=== PATIENT | male | born 1935 | race Caucasian/White ===

== ENCOUNTER 2016-12-17 15:12 | Emergency (ER) | payer MEDICARE ==
[2016-12-17 15:26] VITALS: TEMP 97.8
--- NOTE | 2016-12-17 16:46 | ED ---
Wound/Laceration HPI - General Chief Complaint: Wound/Laceration Stated Complaint: ear laceration/fall(2to3 steps) Time Seen by Provider: 12/17/16 15:28 Source: patient Mode of arrival: ambulatory Limitations: no limitations - History of Present Illness Initial Comments: 81-year-old male patient presents to emergency department for evaluation of ear laceration after a fall. Patient states that this occurred about one hour prior to arrival. Patient states he was coming down attic steps when he missed a step and fell down about 4 stairs. Patient states he did land on the landing hitting his ear and one of the steps. Patient denies losing consciousness. Denies any headache, neck pain, back pain, chest pain, shortness of breath, abdominal pain, nausea, vomiting, blurred vision, or double vision. Denies any joint pain or other injuries. Patient denies use of anticoagulants. States he had a tetanus shot 3 years ago. - Related Data Previous Rx's Medication Instructions Recorded Cephalexin [Keflex] 500 mg PO Q8HR #15 cap 12/17/16 Allergies Allergy/AdvReac Type Severity Reaction Status Date / Time latex AdvReac Itching Verified 12/17/16 15:26 Review of Systems ROS Statement: Those systems with pertinent positive or pertinent negative responses have been documented in the HPI. ROS Other: All systems not noted in ROS Statement are negative. Past Medical History Past Medical History: Hypertension History of Any Multi-Drug Resistant Organisms: None Reported Past Surgical History: Orthopedic Surgery Past Psychological History: No Psychological Hx Reported Smoking Status: Never smoker Past Alcohol Use History: Daily, Occasional Past Drug Use History: None Reported General Exam Limitations: no limitations General appearance: alert, in no apparent distress Head exam: Present: atraumatic, normocephalic, normal inspection ENT exam: Present: normal oropharynx, mucous membranes moist, TM's normal bilaterally, other (Left ear laceration involving the helix and triangular fossa. Exposed cartilage, with a lacerated cartilage near the attachment of the helix to the scalp.). Absent: normal exam, normal external ear exam Neck exam: Present: normal inspection, full ROM (No midline point tenderness, step-off, or deformity to firm palpation of the posterior cervical spine. Full range of motion of the neck without limitation or pain.). Absent: tenderness, meningismus, lymphadenopathy Respiratory exam: Present: normal lung sounds bilaterally. Absent: respiratory distress, wheezes, rales, rhonchi, stridor Cardiovascular Exam: Present: regular rate, normal rhythm, normal heart sounds. Absent: systolic murmur, diastolic murmur, rubs, gallop, clicks GI/Abdominal exam: Present: soft, normal bowel sounds. Absent: distended, tenderness, guarding, rebound, rigid Extremities exam: Present: normal inspection, full ROM, normal capillary refill , other (Posttibial pulses intact. Skin pink, warm, and dry.). Absent: tenderness, pedal edema, joint swelling, calf tenderness Back exam: Present: normal inspection, full ROM, other (Contusions, ecchymosis, or abrasions are noted. Nontender without step-off or deformity to her midline palpation. No flank ecchymosis noted. Pelvis is nontender to palpation and stable to compression.). Absent: tenderness, CVA tenderness (R), CVA tenderness (L), vertebral tenderness Neurological exam: Present: alert, oriented X3, CN II-XII intact Psychiatric exam: Present: normal affect, normal mood Skin exam: Present: warm, dry, intact, normal color. Absent: rash Course Vital Signs 12/17/16 15:21 Temperature 97.8 F Pulse Rate 87 Respiratory 16 Rate Blood Pressure 162/75 O2 Sat by Pulse 96 Oximetry Procedures - Laceration Laceration #1 Consent Obtained: verbal consent Time Out Performed: Yes Indication: laceration Site: other (Left ear) Size (cm): 5 Description: linear Depth: simple, single layer (Involves cartilage) Anesthetic Used: lidocaine 1% Anesthesia Technique: local infiltration Amount (mls): 1 Pre-repair: irrigated extensively Type of Sutures: nylon Size of Sutures: 5-0 Number of Sutures: 9 Technique: simple, interrupted Patient Tolerated Procedure: well, no complications Additional Comments: One suture placed to the triangular fossa area. Medical Decision Making - Medical Decision Making 81-year-old male patient presents to emergency department today for evaluation of left ear laceration. Patient did experience a fall however was not complaining of any other injuries and physical exam was unremarkable except for lac to left ear. My attending Dr. Carroll did come in to evaluate the ear as well and advised repair. Laceration was repaired. 9 sutures were placed. Patient given instructions to return in 5 days for suture removal. Instructed patient to follow up with ENT in 1-2 days for a recheck. Instructed patient to return for any new, worsening, or concerning symptoms. Patient instructed to follow up with primary care physician in one to 2 days as well for recheck if unable to get in to ENT. Patient and family given instructions to cleanse area twice daily with warm water and soap. Return parameters discussed in detail. Instructed regarding signs and symptoms of infection. Disposition Clinical Impression: Laceration of left ear Disposition: HOME SELF-CARE Condition: Good Instructions: Care For Your Stitches (ED), Laceration (ED) Additional Instructions: Keep area clean and dry. Apply antibiotic ointment for the first 24 hours. Then leave open to air. Wash gently twice daily with warm water and antibacterial soap. Complete antibiotic prescription and full. Return for any new, worsening, or concerning symptoms. Follow up with ENT in 1-2 days for recheck. Prescriptions: Cephalexin [Keflex] 500 mg PO Q8HR #15 cap Referrals: Gisel Gonzalez MD [Primary Care Provider] - 1-2 days Vic Perdue DO [Doctor of Osteopathic Medicine] - 1-2 days Time of Disposition: 16:46
[2016-12-17 16:54] VITALS: BP 145/78; PULSE 80; RESP 18
== END 2016-12-17 16:52 | disposition home or self-care (01) ==
LOC: EC 15:12
DX: S01.312A Laceration without foreign body of left ear, initial encounter (principal); S20.229A Contusion of unspecified back wall of thorax, initial encounter; Z91.040 Latex allergy status; W10.8XXA Fall (on) (from) other stairs and steps, initial encounter
CPT/HCPCS: 12013; 99282

== ENCOUNTER 2017-11-30 08:02 | Day surgery (SDC) | payer MEDICARE ==
[2017-11-24 15:12] VITALS: BMI 24.7
[~2017-11-30 08:02] MED LIST: LACTATED RINGERS 1,000 ML IV SCH; MOXIFLOXACIN HCL 0.5% DROPS 3 ML BTL OP ONE; TETRACAINE 0.5% OPHTH (PF) DROPS 4 ML BTL OP ONE; TIMOLOL 0.5% OPHTH DROPS 5 ML BTL OP ONE
[2017-11-30] MEDS ORDERED: LIDOCAINE 1% 20 ML VIAL (10MG/ML) FOR IV START INTRADERMA ONE ×2 (09:10→09:21)
[2017-11-30] MEDS: CYCLOPENTOLATE 1% OPHTH SOLN 2 ML BTL OP ONE ×4 (09:10→09:28)
[2017-11-30] MEDS: PHENYLEPHRINE 2.5% OPHTH DRP 2ML OP NR ×3 (09:13→09:30)
[2017-11-30 09:16] VITALS: RESP 16; TEMP 97.2
[2017-11-30] MEDS ORDERED: fentaNYL (PF) 50 MCG/ML 2 ML AMP ONE (10:17)
[2017-11-30] MEDS ORDERED: MIDAZOLAM 2 MG/2 ML VIAL ONE (10:17)
[2017-11-30] MEDS ORDERED: EPINEPHrine (PF) 0.3 ML in BALANCED SALT IRRIG SOLN COMB2 500 ML IRRIGATION ONE (10:20)
[2017-11-30] MEDS ORDERED: HYALURONATE SODIUM INTRAOCULAR 1 EACH SYRINGE (12MG/ML) INTRAOCULA ONE (10:21)
[2017-11-30] MEDS ORDERED: LIDOCAINE 1% (PF) 10MG/ML VIAL MISCELLANE ONE (10:21)
[2017-11-30] MEDS ORDERED: BALANCED SALT IRRIG SOLN COMB2 15 ML IRRIG.SOLN INTRAOCULA ONE (10:21)
--- NOTE | 2017-11-30 10:44 | P.OP ---
Date of Procedure: 11/30/17 Preoperative Diagnosis: NS & CS Postoperative Diagnosis: same Procedure(s) Performed: PIOL OS Implants: PCB00 18.50 Anesthesia: MAC Surgeon: Douglas Geiger Estimated Blood Loss (ml): 0 Pathology: none sent Condition: stable Disposition: same day Indications for Procedure: blurry vision Operative Findings: No complications
[2017-11-30 11:11] VITALS: BP 128/63; PULSE 52
--- NOTE | 2017-11-30 11:15 | OP ---
OPERATIVE REPORT DATE OF SERVICE: 11/30/2017 PROCEDURE: Phacoemulsification of cataract and intraocular implant left eye. PREOPERATIVE DIAGNOSIS:: Nuclear sclerosis, cortical sclerosis. POSTOPERATIVE DIAGNOSIS:: Nuclear sclerosis, cortical sclerosis. ESTIMATED BLOOD LOSS:: Zero. SPECIMEN TAKEN:: None. NARRATIVE:: After obtaining the appropriate consent, the patient was brought to the Operating Room where the patient was placed under cardiac monitoring and prepped and draped in the usual sterile manner. At the 5 o'clock position a 15 degree super sharp blade was used to create a paracentesis followed by instillation of 1% Xylocaine MPF 50:50 mix with BSS into the anterior chamber. This was followed by to stabilize the anterior chamber. At the 3 o'clock position a self-sealing corneal flap incision was created using 2.8 mm deedee keratome. A cystatome was used to initiate a continuous tear capsulorrhexis which was completed with the Utrata forceps. A Binkhorst cannula was used to hydrodissect the lens nucleus followed by hydrodelineation. Phacoemulsification of the lens was performed utilizing phacochop in 24.1 seconds at 10% power. The remaining cortical material was removed using the irrigation aspiration mode followed by additional 1% Xylocaine MPF into the anterior chamber followed by Amvisc viscoelastic to stabilize the capsular bag. An NIKITA PCB00 18.5 diopters posterior chamber lens was placed into the capsular bag without difficulty. The remaining viscoelastic material was removed from the anterior chamber with the irrigation/aspiration. Balanced salt solution was used to normalize the intraocular pressure. The incision was checked for watertight integrity. The patient then received two drops of 0.5% timolol followed by two drops Vigamox, was lightly patched and shielded in the usual manner. There were no complications from the procedure. The patient tolerated the procedure well and was returned to recovery in good condition. MMODL / IJN: [id number] /
== END 2017-11-30 11:45 | disposition home or self-care (01) ==
LOC: OR 08:02
PROVIDERS: ATTEND Ophthalmology
DX: H25.013 Cortical age-related cataract, bilateral (principal); H02.102 Unspecified ectropion of right lower eyelid; H02.105 Unspecified ectropion of left lower eyelid; H25.041 Posterior subcapsular polar age-related cataract, right eye; H52.4 Presbyopia; H52.13 Myopia, bilateral; H00.026 Hordeolum internum left eye, unspecified eyelid; H00.023 Hordeolum internum right eye, unspecified eyelid; I10 Essential (primary) hypertension; Z91.040 Latex allergy status; Z79.82 Long term (current) use of aspirin; Z79.899 Other long term (current) drug therapy
CPT/HCPCS: 66984; C1780; J2250; J0171; J3010; J2001

== ENCOUNTER 2017-12-14 06:34 | Day surgery (SDC) | payer MEDICARE ==
[2017-12-06 16:05] VITALS: BMI 24.7
[~2017-12-14 06:34] MED LIST changes: +LIDOCAINE 1% 20 ML VIAL (10MG/ML) FOR IV START INTRADERMA PRN; +MIDAZOLAM 2 MG/2 ML VIAL IV PRN
[2017-12-14] MEDS: CYCLOPENTOLATE 1% OPHTH SOLN 2 ML BTL OP ONE ×3 (07:19→07:34)
[2017-12-14 07:21] VITALS: RESP 16; TEMP 97.3
[2017-12-14] MEDS: PHENYLEPHRINE 2.5% OPHTH DRP 2ML OP NR ×3 (07:23→07:38)
[2017-12-14] MEDS ORDERED: fentaNYL (PF) 50 MCG/ML 2 ML AMP ONE (08:03)
[2017-12-14] MEDS ORDERED: MIDAZOLAM 2 MG/2 ML VIAL ONE (08:03)
[2017-12-14] MEDS ORDERED: BALANCED SALT IRRIG SOLN COMB2 15 ML IRRIG.SOLN IRRIGATION ONE (08:04)
[2017-12-14] MEDS ORDERED: LIDOCAINE 1% (PF) 10MG/ML VIAL SQ ONE (08:04)
[2017-12-14] MEDS ORDERED: HYALURONATE SODIUM INTRAOCULAR 1 EACH SYRINGE (12MG/ML) INTRAOCULA ONE (08:04)
[2017-12-14] MEDS ORDERED: EPINEPHrine (PF) 0.3 ML in BALANCED SALT IRRIG SOLN COMB2 500 ML IRRIGATION ONE (08:17)
--- NOTE | 2017-12-14 08:33 | P.OP ---
Date of Procedure: 12/14/17 Preoperative Diagnosis: NS & CS & PSC Postoperative Diagnosis: same Procedure(s) Performed: PIOL OD Implants: PCB00 17.00 Anesthesia: MAC Surgeon: Douglas Geiger Pathology: none sent Condition: stable Disposition: same day Indications for Procedure: blurry vision Operative Findings: no complications
[2017-12-14 08:56] VITALS: BP 155/78; PULSE 50
--- NOTE | 2017-12-14 08:58 | OP ---
OPERATIVE REPORT DATE OF SURGERY: 12/14/2017. PROCEDURE: Phacoemulsification of cataract and intraocular lens implant of the right eye. PREOPERATIVE DIAGNOSES:: 1. Nuclear sclerosis. 2. Cortical sclerosis. 3. Posterior subcapsular cataract. POSTOPERATIVE DIAGNOSES:: 1. Nuclear sclerosis. 2. Cortical sclerosis. 3. Posterior subcapsular cataract. OPERATION:: Clear cornea phacoemulsification of cataract of right eye. ESTIMATED BLOOD LOSS:: Zero. SPECIMEN TAKEN:: None. NARRATIVE:: After obtaining the appropriate consent, the patient was brought to the Operating Room where the patient was placed under cardiac monitoring and prepped and draped in the usual sterile manner. At the 11 o'clock position a 15 degree super sharp blade was used to create a paracentesis followed by instillation of 1% Xylocaine MPF 50:50 mix with BSS into the anterior chamber. This was followed by Amvisc to stabilize the anterior chamber. At the 9 o'clock position a self-sealing corneal flap incision was created using 2.8 mm deedee keratome. A cystatome was used to initiate a continuous tear capsulorrhexis which was completed with the Utrata forceps. A Binkhorst cannula was used to hydrodissect the lens nucleus followed by hydrodelineation. Phacoemulsification of the lens was performed utilizing phacochop in 1.6 seconds at 15% power. The remaining cortical material was removed using the irrigation aspiration mode followed by additional 1% Xylocaine MPF into the anterior chamber followed by viscoelastic to stabilize the capsular bag. An NIKITA PCB 00 17.0 diopters posterior chamber lens was placed into the capsular bag without difficulty. The remaining viscoelastic material was removed from the anterior chamber with the irrigation/aspiration. Balanced salt solution was used to normalize the intraocular pressure. The incision was checked for watertight integrity. The patient then received two drops of 0.5% timolol followed by two drops Vigamox, was lightly patched and shielded in the usual manner. There were no complications from the procedure. The patient tolerated the procedure well and was returned to recovery in good condition. MMODL / IJN: [id number] /
== END 2017-12-14 09:12 | disposition home or self-care (01) ==
LOC: OR 06:34
PROVIDERS: ATTEND Ophthalmology
DX: H25.11 Age-related nuclear cataract, right eye (principal); H25.041 Posterior subcapsular polar age-related cataract, right eye; I10 Essential (primary) hypertension; H25.011 Cortical age-related cataract, right eye; H02.105 Unspecified ectropion of left lower eyelid; H02.102 Unspecified ectropion of right lower eyelid; H52.4 Presbyopia; H52.10 Myopia, unspecified eye; H00.026 Hordeolum internum left eye, unspecified eyelid; H00.023 Hordeolum internum right eye, unspecified eyelid; Z98.42 Cataract extraction status, left eye; Z96.1 Presence of intraocular lens; Z85.51 Personal history of malignant neoplasm of bladder; Z79.899 Other long term (current) drug therapy; Z79.82 Long term (current) use of aspirin; Z97.3 Presence of spectacles and contact lenses
CPT/HCPCS: 66984; C1780; J2250; J0171; J3010; J2001

== ENCOUNTER → 2018-03-16 | Outpatient (CLI) | payer MEDICARE ==
[2018-03-16 10:02] LABS: Basophils % (A) 0 %; Eosinophils % (A) 1 %; HGB 14.5 gm/dL (13.0-17.5); Lymphocytes # (A) 1.2 k/uL (1.0-4.8); Lymphocytes % (A) 18 %; MCH 31.8 pg (25.0-35.0); MCHC 32.3 g/dL (31.0-37.0); MCV 98.4 fL (80.0-100.0); Mean Platelet Volume 6.9; Monocytes # (A) 0.3 k/uL (0-1.0); Monocytes % (A) 5 %; Neutrophils # (A) 4.9 k/uL (1.3-7.7); Neutrophils % (A) 75 %; Platelet Count 262 k/uL (150-450); RBC 4.57 m/uL (4.30-5.90); RDW 12.5 % (11.5-15.5); WBC 6.5 k/uL (3.8-10.6)
[2018-03-16 10:32] LABS: Appearance,Urine Clear (Clear); Bilirubin,Urine Negative (Negative); Blood,Urine Negative (Negative); Color,Urine Yellow; Glucose,Urine (UA) Negative (Negative); Ketones,Urine Negative (Negative); Leukocyte Esterase,Urine Small (Negative); Mucus,Urine Rare /hpf; Nitrite,Urine Negative (Negative); Protein,Urine Negative (Negative); RBC,Urine 1 /hpf (0-5); Specific Gravity,Urine 1.015 (1.001-1.035); Urobilinogen,Urine <2.0 mg/dL (<2.0); WBC,Urine 3 /hpf (0-5)
[2018-03-16 18:05] LABS: T4, Free (Free Thyroxine) 1.4 ng/dL (0.80-1.80)
[2018-03-16 18:29] LABS: Albumin 4.6 g/dL (3.80-4.90); Albumin/Globulin Ratio 2.09 (1.20-2.10); Anion Gap 9.5 mmol/L (4.00-12.00); Calcium 9.2 mg/dL (8.7-10.3); Carbon Dioxide 26.5 mmol/L (21.6-31.8); Globulin 2.2 g/dL (2.1-3.7); LDL Cholesterol,Calculated 101.6 mg/dL (0.0-131.0); Magnesium 2.1 mg/dL (1.5-2.4); Potassium 3.9 mmol/L (3.5-5.5); Total Bilirubin 0.9 mg/dL (0.3-1.2); Total Protein 6.8 g/dL (6.2-8.2); Uric Acid 5.9 mg/dL (3.7-8.7); VLDL Calculation 15.4 mg/dL (5.00-40.00)
[2018-03-16 19:43] LABS: Hemoglobin A1C 5.9 % (4.0-6.0)
== END ==
LOC: LABWHC1 08:46
PROVIDERS: ATTEND Internal Medicine
DX: Z00.00 Encounter for general adult medical examination without abnormal findings (principal); I10 Essential (primary) hypertension; E78.00 Pure hypercholesterolemia, unspecified; R97.20 Elevated prostate specific antigen [PSA]
CPT/HCPCS: 36415; 80053; 80061; 81001; 82550; 83036; 83735; 84153; 84439; 84443; 84550; 85025

== ENCOUNTER → 2018-09-21 | Outpatient (CLI) | payer MEDICARE ==
[2018-09-21 08:42] LABS: Basophils % (A) 0 %; Eosinophils # (A) 0.2 k/uL (0-0.7); Eosinophils % (A) 3 %; HCT 46.2 % (39.0-53.0); HGB 14.5 gm/dL (13.0-17.5); Lymphocytes # (A) 1.5 k/uL (1.0-4.8); Lymphocytes % (A) 21 %; MCH 31.1 pg (25.0-35.0); MCHC 31.3 g/dL (31.0-37.0); MCV 99.2 fL (80.0-100.0); Mean Platelet Volume 6.9; Monocytes # (A) 0.4 k/uL (0-1.0); Monocytes % (A) 5 %; Neutrophils % (A) 68 %; Platelet Count 259 k/uL (150-450); RBC 4.66 m/uL (4.30-5.90); RDW 12.6 % (11.5-15.5); WBC 7.2 k/uL (3.8-10.6)
[2018-09-21 08:57] LABS: Appearance,Urine Clear (Clear); Bilirubin,Urine Negative (Negative); Blood,Urine Trace (Negative); Color,Urine Yellow; Glucose,Urine (UA) Negative (Negative); Ketones,Urine Negative (Negative); Leukocyte Esterase,Urine Small (Negative); Mucus,Urine Rare /hpf; Nitrite,Urine Negative (Negative); PH, Urine 6.5 (5.0-8.0); Protein,Urine 1+ (Negative); RBC,Urine 3 /hpf (0-5); Specific Gravity,Urine 1.021 (1.001-1.035); Sperm,Urine Few /hpf; Squamous Epithelial Cell,Urine <1 /hpf (0-4); Urobilinogen,Urine <2.0 mg/dL (<2.0); WBC,Urine 9 /hpf (0-5)
[2018-09-21 16:50] LABS: Albumin 4.2 g/dL (3.80-4.90); Anion Gap 7.6 mmol/L (4.00-12.00); Calcium 9.2 mg/dL (8.7-10.3); Carbon Dioxide 26.4 mmol/L (21.6-31.8); Globulin 2.1 g/dL (1.6-3.3); LDL Cholesterol,Calculated 100.4 mg/dL (0.0-131.0); Magnesium 2.1 mg/dL (1.5-2.4); Potassium 4.2 mmol/L (3.5-5.5); Total Bilirubin 0.6 mg/dL (0.3-1.2); Total Protein 6.3 g/dL (6.2-8.2); Uric Acid 5.8 mg/dL (3.7-8.7); VLDL Calculation 20.6 mg/dL (5.00-40.00)
[2018-09-21 16:56] LABS: Hemoglobin A1C 5.9 % (4.0-6.0)
[2018-09-21 16:57] LABS: T4, Free (Free Thyroxine) 1.2 ng/dL (0.80-1.80)
== END | disposition home or self-care (01) ==
LOC: LABWHC1 08:01
PROVIDERS: ATTEND Internal Medicine
DX: R73.01 Impaired fasting glucose (principal); Z00.00 Encounter for general adult medical examination without abnormal findings; C67.9 Malignant neoplasm of bladder, unspecified; I10 Essential (primary) hypertension; E78.00 Pure hypercholesterolemia, unspecified; R97.20 Elevated prostate specific antigen [PSA]
CPT/HCPCS: 36415; 80053; 80061; 81001; 82550; 83036; 83735; 84153; 84439; 84443; 84550; 85025

== ENCOUNTER → 2019-03-28 | Outpatient (CLI) | payer MEDICARE ==
[2019-03-28 08:24] LABS: Basophils % (A) 0 %; Eosinophils # (A) 0.1 k/uL (0-0.7); Eosinophils % (A) 1 %; HCT 44.1 % (39.0-53.0); HGB 14.4 gm/dL (13.0-17.5); Lymphocytes # (A) 1.2 k/uL (1.0-4.8); Lymphocytes % (A) 17 %; MCH 32.2 pg (25.0-35.0); MCHC 32.6 g/dL (31.0-37.0); MCV 98.7 fL (80.0-100.0); Mean Platelet Volume 6.4; Monocytes # (A) 0.3 k/uL (0-1.0); Monocytes % (A) 5 %; Neutrophils # (A) 5.6 k/uL (1.3-7.7); Neutrophils % (A) 75 %; Platelet Count 320 k/uL (150-450); RBC 4.46 m/uL (4.30-5.90); WBC 7.4 k/uL (3.8-10.6)
[2019-03-28 08:51] LABS: Appearance,Urine Clear (Clear); Bilirubin,Urine Negative (Negative); Blood,Urine Negative (Negative); Color,Urine Yellow; Glucose,Urine (UA) Negative (Negative); Ketones,Urine Negative (Negative); Leukocyte Esterase,Urine Negative (Negative); Nitrite,Urine Negative (Negative); PH, Urine 6.5 (5.0-8.0); Protein,Urine Negative (Negative); Specific Gravity,Urine 1.016 (1.001-1.035); Urobilinogen,Urine <2.0 mg/dL (<2.0)
[2019-03-28 16:10] LABS: Magnesium 2.1 mg/dL (1.5-2.4); Uric Acid 5.6 mg/dL (3.7-8.7)
[2019-03-28 16:11] LABS: African American GFR (CKD) 81.4 (60.0-200.0); Albumin 4.5 g/dL (3.80-4.90); Albumin/Globulin Ratio 1.96 (1.60-3.17); Anion Gap 9.4 mmol/L (4.00-12.00); Calcium 9.5 mg/dL (8.7-10.3); Carbon Dioxide 26.6 mmol/L (21.6-31.8); Chol/HDL Ratio 3.12; Globulin 2.3 g/dL (1.6-3.3); LDL Cholesterol,Calculated 105.6 mg/dL (0.0-131.0); Non-African American GFR(CKD) 70.3 (60.0-200.0); Potassium 4.1 mmol/L (3.5-5.5); Total Bilirubin 0.6 mg/dL (0.3-1.2); Total Protein 6.8 g/dL (6.2-8.2); VLDL Calculation 17.4 mg/dL (5.00-40.00)
[2019-03-28 16:19] LABS: T4, Free (Free Thyroxine) 1.6 ng/dL (0.80-1.80)
[2019-03-28 18:09] LABS: Hemoglobin A1C 5.9 % (4.0-6.0)
== END | disposition home or self-care (01) ==
LOC: LABWHC1 07:54
PROVIDERS: ATTEND Urology
DX: Z00.00 Encounter for general adult medical examination without abnormal findings (principal); I10 Essential (primary) hypertension; E78.00 Pure hypercholesterolemia, unspecified; R97.20 Elevated prostate specific antigen [PSA]
CPT/HCPCS: 36415; 80053; 80061; 81003; 82550; 83036; 83735; 84153; 84439; 84443; 84550; 85025

== ENCOUNTER → 2019-11-16 | Outpatient (CLI) | payer MEDICARE ==
[2019-11-16 07:39] LABS: Basophils % (A) 0 %; Eosinophils # (A) 0.3 k/uL (0-0.7); Eosinophils % (A) 4 %; HGB 13.7 gm/dL (13.0-17.5); Lymphocytes # (A) 1.6 k/uL (1.0-4.8); Lymphocytes % (A) 21 %; MCH 31.3 pg (25.0-35.0); MCHC 31.9 g/dL (31.0-37.0); MCV 98.3 fL (80.0-100.0); Mean Platelet Volume 7.4; Monocytes # (A) 0.5 k/uL (0-1.0); Monocytes % (A) 6 %; Neutrophils # (A) 5.1 k/uL (1.3-7.7); Neutrophils % (A) 67 %; Platelet Count 201 k/uL (150-450); RBC 4.38 m/uL (4.30-5.90); RDW 12.3 % (11.5-15.5); WBC 7.6 k/uL (3.8-10.6)
[2019-11-16 11:39] LABS: African American GFR (CKD) 80.9 (60.0-200.0); Albumin 4.2 g/dL (3.80-4.90); Albumin/Globulin Ratio 1.75 (1.60-3.17); Anion Gap 8.2 mmol/L (4.00-12.00); Calcium 9.3 mg/dL (8.7-10.3); Carbon Dioxide 26.8 mmol/L (21.6-31.8); Chol/HDL Ratio 3.16; Globulin 2.4 g/dL (1.6-3.3); LDL Cholesterol,Calculated 109.6 mg/dL (0.0-131.0); Non-African American GFR(CKD) 69.8 (60.0-200.0); Potassium 3.9 mmol/L (3.5-5.5); Total Bilirubin 0.4 mg/dL (0.3-1.2); Total Protein 6.6 g/dL (6.2-8.2); VLDL Calculation 13.4 mg/dL (5.00-40.00)
== END | disposition home or self-care (01) ==
LOC: LABWHC1 07:07
PROVIDERS: ATTEND Internal Medicine
DX: I10 Essential (primary) hypertension (principal); E78.2 Mixed hyperlipidemia; R97.20 Elevated prostate specific antigen [PSA]
CPT/HCPCS: 36415; 80053; 80061; 84153; 85025

== ENCOUNTER → 2021-11-11 | Outpatient (CLI) | payer MEDICARE ==
--- NOTE | 2021-11-12 07:26 | US ---
EXAMINATION TYPE: US carotid duplex BILAT DATE OF EXAM: 11/11/2021 COMPARISON: NONE CLINICAL HISTORY: I65.23 CAROTID STENOSIS. EXAM MEASUREMENTS: RIGHT: Peak Systolic Velocity (PSV) cm/sec ----- Right CCA: 112.3 ----- Right ICA: 132.6 ----- Right ECA: 105 ICA/CCA ratio: 1.2 RIGHT: End Diastole cm/sec ----- Right CCA: 20.8 ----- Right ICA: 0.0 ----- Right ECA: 16.4 LEFT: Peak Systolic Velocity (PSV) cm/sec ----- Left CCA: 97.5 ----- Left ICA: 85.3 ----- Left ECA: 136.3 ICA/CCA ratio: 0.9 LEFT: End Diastole cm/sec ----- Left CCA: 14.6 ----- Left ICA: 24.8 ----- Left ECA: 8.2 VERTEBRALS (direction of flow): Right Vertebral: Antegrade Left Vertebral: Antegrade Rhythm: Arrhythmia Mild atherosclerotic changes without significant velocity increases, IMPRESSION: No evidence for hemodynamically significant stenosis. Criteria for Assigning % of Stenosis / Diameter reduction (Estimation based on the indirect measurements of the internal carotid artery velocities (ICA PSV). 1. Normal (no stenosis)=ICA PSV < 125 cm/s: ratio < 2.0: ICA EDV<40 cm/s. 2. Less than 50% stenosis=ICA PSV < 125 cm/s: ratio < 2.0: ICA EDV<40 cm/s. 3. 50 to 69% stenosis=ICA PSV of 125 to 230 cm/s: ration 2.0 ? 4.0: ICA EDV 40-100 cm/s. 4. Greater than 70% stenosis to near occlusion= ICA PSV > 230 cm/s: ratio > 4.0: ICA EDV > 100 cm/s. 5. Near occlusion= ICA PSV velocities may be low or undetectable: variable ratio and ICA EDV. 6. Total occlusion=unable to detect flow.
== END | disposition home or self-care (01) ==
LOC: RADUSWWP 15:56
PROVIDERS: ATTEND Internal Medicine
DX: I65.23 Occlusion and stenosis of bilateral carotid arteries (principal)
CPT/HCPCS: 93880

== ENCOUNTER 2024-02-14 08:01 | Emergency (ER) | payer MEDICARE ==
[2024-02-14] MEDS: SODIUM CHLORIDE 0.9% 1,000 ML IV STA (08:40)
[2024-02-14 08:46] LABS: Basophils % (A) 1 %; Eosinophils % (A) 1 %; HCT 41.8 % (39.0-53.0); HGB 13.7 gm/dL (13.0-17.5); Lymphocytes % (A) 12 %; MCH 32.2 pg (25.0-35.0); MCHC 32.8 g/dL (31.0-37.0); MCV 98.2 fL (80.0-100.0); Mean Platelet Volume 7.6; Monocytes # (A) 0.3 k/uL (0-1.0); Monocytes % (A) 4 %; Neutrophils # (A) 6.3 k/uL (1.3-7.7); Neutrophils % (A) 81 %; Platelet Count 202 k/uL (150-450); RBC 4.26 m/uL (4.30-5.90); RDW 13.2 % (11.5-15.5); WBC 7.7 k/uL (3.8-10.6)
--- NOTE | 2024-02-14 08:46 | ED ---
General Adult HPI - General Chief complaint: Weakness Stated complaint: Afib Time Seen by Provider: 02/14/24 08:15 Source: patient, RN notes reviewed, old records reviewed Mode of arrival: ambulatory Limitations: no limitations - History of Present Illness Initial comments: Patient is an 88-year-old male who presents emergency department complaining of weakness. Has been ongoing for the last day. More noticeable this morning. States he is just lacking energy. Has no other acute complaints. Denies chest pain or shortness of breath. Had brief abdominal discomfort when he first awoke this morning but that has not persisted. No nausea or vomiting. No constipation or diarrhea. No urinary complaints. Patient has a history remarkable for atrial fibrillation on blood thinners. Denies any recent falls or injuries. Denies any focal weakness or sensory deficits. Has no other acute complaints. The weakness was worse this morning which is why presents for evaluation. Has been taking all of his medications. Has noticed decreased appetite and oral intake since springtime when he had COVID. - Related Data Home Medications Medication Instructions Recorded Confirmed Losartan/Hydrochlorothiazide 1 tab PO QAM 11/24/17 02/14/24 [Losartan-Hctz 100-12.5 mg Tab] Atorvastatin [Lipitor] 40 mg PO HS 01/25/23 02/14/24 Finasteride [Proscar] 5 mg PO QAM 01/25/23 02/14/24 Multivitamins, Thera [Multivitamin 1 tab PO QAM 01/25/23 02/14/24 (formulary)] amLODIPine [Norvasc] 5 mg PO QAM 01/25/23 02/14/24 Apixaban [Eliquis] 5 mg PO BID 02/14/24 02/14/24 Biotin 5 mg PO QAM 02/14/24 02/14/24 Cholecalciferol (Vitamin D3) 75 mcg PO QAM 02/14/24 02/14/24 [Vitamin D3 (3000 Iu)] Empagliflozin [Jardiance] 25 mg PO QAM 02/14/24 02/14/24 Allergies Allergy/AdvReac Type Severity Reaction Status Date / Time latex Allergy Itching Verified 02/14/24 09:57 "sometimes" Review of Systems ROS Statement: Those systems with pertinent positive or pertinent negative responses have been documented in the HPI. Review of Systems: CONST: Denies fever EYES: Denies blurry vision ENT: Denies nasal congestion C/V: Denies Chest pain RESP: Denies shortness of breath GI: Denies abdominal pain : Denies dysuria SKIN: Denies rash. MSK: Denies joint pain. NEURO: Denies headache ROS Other: All systems not noted in ROS Statement are negative. Past Medical History Past Medical History: Atrial Fibrillation, Cancer, Hypertension Additional Past Medical History / Comment(s): left elbow spur and bursitis- steroids Dec 2022,bladder Ca-received intrabladder chemo-2014 History of Any Multi-Drug Resistant Organisms: None Reported Past Surgical History: Orthopedic Surgery Additional Past Surgical History / Comment(s): rt torn meniscus,cystoscopy,maida cataracts Past Anesthesia/Blood Transfusion Reactions: No Reported Reaction Additional Past Anesthesia/Blood Transfusion Reaction / Comment(s): no hx blood transfusion Past Psychological History: No Psychological Hx Reported Smoking Status: Never smoker - Past Family History Mother Family Medical History: No Reported History General Exam - General Exam Comments Initial Comments: General: Appears in no acute distress. HEAD: Normal with no signs of head trauma. EYES: PERRLA, EOMI, conjunctiva normal, no discharge. ENT: Hearing grossly intact, normal oropharynx. RESPIRATORY: Clear breath sounds bilaterally. No wheezes, rales, or rhonchi. C/V: Regular rate and rhythm. S1 and S2 auscultated, no edema, peripheral pulses 2+ and intact throughout ABD: Abd is soft, nontender, nondistended EXT: Normal range of motion, no obvious deformity SKIN: No rashes or lesions observed on exposed skin. NEURO: Alert and oriented x 4. Cranial nerves II-XII intact. No focal sensory or strength deficits. GCS of 15. NIH of 0. Limitations: no limitations Course Vital Signs 02/14/24 02/14/24 02/14/24 08:03 09:50 10:56 Temperature 97.6 F 97.7 F 97.6 F Pulse Rate 102 H 71 72 Respiratory 18 16 18 Rate Blood Pressure 120/76 138/82 137/80 O2 Sat by Pulse 99 98 98 Oximetry Medical Decision Making - Medical Decision Making Was pt. sent in by a medical professional or institution (, PA, P[employer]CH [employer]ISHER, urgent care, hospital, or residential...) When possible be specific @ -No Did you speak to anyone other than the patient for history (EMS, parent, family, police, friend...)? What history was obtained from this source @ -No Did you review nursing and triage notes (agree or disagree)? Why? @ -I reviewed and agree with nursing and triage notes Were old charts reviewed (outside hosp., previous admission, EMS record, old EKG, old radiological studies, urgent care reports/EKG's, residential records)? Report findings @ -No old charts were reviewed Differential Diagnosis (chest pain, altered mental status, abdominal pain women, abdominal pain men, vaginal bleeding, weakness, fever, dyspnea, syncope, headache, dizziness, GI bleed, back pain, seizure, CVA, palpatations, mental health, musculoskeletal)? @ -Differential Weakness: Hypoglycemia, shock, sepsis, hyponatremia, anemia, infection, DE, ETOH, adverse medicine reaction, overdose, stroke, this is not meant to be an all-inclusive list. EKG interpreted by me (3pts min.). @ -As above X-rays interpreted by me (1pt min.). @ -Chest x-ray reveals no obvious acute cardiopulmonary process. CT interpreted by me (1pt min.). @ -None done U/S interpreted by me (1pt. min.). @ -None done What testing was considered but not performed or refused? (CT, X-rays, U/S, labs)? Why? @ -None What meds were considered but not given or refused? Why? @ -None Did you discuss the management of the patient with other professionals (professionals i.e. , PA, P[employer]CH FINISHER, lab, RT, psych nurse, social contact worker, air conditioning mechanic, teacher, chief operating officer, housing case manager)? Give summary @ -No Was smoking cessation discussed for >3mins.? @ -No Was critical care preformed (if so, how long)? @ -No Were there social determinants of health that impacted care today? How? (Homelessness, low income, unemployed, alcoholism, drug addiction, trans portation, low edu. Level, literacy, decrease access to med. care, half-way, rehab)? @ -No Was there de-escalation of care discussed even if they declined (Discuss DNR or withdrawal of care, Hospice)? DNR status @ -No What co-morbidities impacted this encounter? (DM, HTN, Smoking, COPD, CAD, Cancer, CVA, ARF, Chemo, Hep., AIDS, mental health diagnosis, sleep apnea, morbid obesity)? @ -None Was patient admitted / discharged? Hospital course, mention meds given and route, prescriptions, significant lab abnormalities, going to OR and other pertinent info. @ -Patient presents emergency department complaining of weakness for 1 to 2 days. No other obvious complaints. We will obtain general workup. Vitals are within acceptable limits. Patient is currently in rate controlled A-fib which is chronic for the patient. Exam is unremarkable. He will be given IV fluids. He was in agreement this plan. EKG shows rate controlled atrial fibrillation. No evidence of acute ischemia.Chest x-ray unremarkable. Patient's laboratory studies including viral swabs, urinalysis, troponin all within acceptable limits. Patient does have 4+ glucose in his urine but was recently started on Jardiance. No evidence of DKA. On reevaluation after IV fluids, patient is feeling improved. We did discuss his workup. I did offer observation admission due to his age however he would like to go home. I believe this is reasonable. Strict return precautions discussed. He will follow-up with his PCP. I instructed the patient to follow up with their PCP in the next 1-3 days. I explained that the patient should return to the emergency department if they experience any worsening symptoms. Strict return precautions were discussed with the patient. The patient expressed understanding of these instructions. I answered all questions that the patient had. The patient was discharged home in good condition with their prescriptions and follow up information. Undiagnosed new problem with uncertain prognosis? @ -No Drug Therapy requiring intensive monitoring for toxicity (Heparin, Nitro, Insulin, Cardizem)? @ -No Were any procedures done? @ -No Diagnosis/symptom? @ -Weakness Acute, or Chronic, or Acute on Chronic? @ -Acute Uncomplicated (without systemic symptoms) or Complicated (systemic symptoms)? @ -Uncomplicated Side effects of treatment? @ -None Exacerbation, Progression, or Severe Exacerbation] @ -No Poses a threat to life or bodily function? @ -Unlikely at this time - Lab Data Result diagrams: 02/14/24 08:33 02/14/24 08:33 Lab Results 02/14/24 02/14/24 02/14/24 Range/Units 08:33 08:33 08:33 WBC 7.7 (3.8-10.6) k/uL RBC 4.26 L (4.30-5.90) m/uL Hgb 13.7 (13.0-17.5) gm/dL Hct 41.8 (39.0-53.0) % MCV 98.2 (80.0-100.0) fL MCH 32.2 (25.0-35.0) pg MCHC 32.8 (31.0-37.0) g/dL RDW 13.2 (11.5-15.5) % Plt Count 202 (150-450) k/uL MPV 7.6 Neutrophils % 81 % Lymphocytes % 12 % Monocytes % 4 % Eosinophils % 1 % Basophils % 1 % Neutrophils # 6.3 (1.3-7.7) k/uL Lymphocytes # 1.0 (1.0-4.8) k/uL Monocytes # 0.3 (0-1.0) k/uL Eosinophils # 0.0 (0-0.7) k/uL Basophils # 0.0 (0-0.2) k/uL PT 12.4 (10.0-12.5) sec INR 1.2 H (<1.2) APTT 28.4 (22.0-30.0) sec Sodium (137-145) mmol/L Potassium (3.5-5.1) mmol/L Chloride (98-107) mmol/L Carbon Dioxide (22-30) mmol/L Anion Gap mmol/L BUN (9-20) mg/dL Creatinine (0.66-1.25) mg/dL Est GFR (CKD-EPI)AfAm (>60 ml/min/1.73 sqM) Est GFR (CKD-EPI)NonAf (>60 ml/min/1.73 sqM) Glucose (74-99) mg/dL Plasma Lactic Acid Shady (0.7-2.0) mmol/L Calcium (8.4-10.2) mg/dL Magnesium (1.6-2.3) mg/dL Total Bilirubin (0.2-1.3) mg/dL AST (17-59) U/L ALT (4-49) U/L Alkaline Phosphatase (38-126) U/L Troponin I (0.000-0.034) ng/mL Total Protein (6.3-8.2) g/dL Albumin (3.5-5.0) g/dL Urine Color Colorless Urine Appearance Clear (Clear) Urine pH 7.0 (5.0-8.0) Ur Specific [place] 1.015 (1.001-1.035) Urine Protein Negative (Negative) Urine Glucose (UA) 4+ H (Negative) Urine Ketones Negative (Negative) Urine Blood Negative (Negative) Urine Nitrite Negative (Negative) Urine Bilirubin Negative (Negative) Urine Urobilinogen <2.0 (<2.0) mg/dL Ur Leukocyte Esterase Negative (Negative) Influenza Type A (PCR) (Not Detectd) Influenza Type B (PCR) (Not Detectd) RSV (PCR) (Not Detectd) SARS-CoV-2 (PCR) (Not Detectd) 02/14/24 02/14/24 02/14/24 Range/Units 08:33 08:33 08:33 WBC (3.8-10.6) k/uL RBC (4.30-5.90) m/uL Hgb (13.0-17.5) gm/dL Hct (39.0-53.0) % MCV (80.0-100.0) fL MCH (25.0-35.0) pg MCHC (31.0-37.0) g/dL RDW (11.5-15.5) % Plt Count (150-450) k/uL MPV Neutrophils % % Lymphocytes % % Monocytes % % Eosinophils % % Basophils % % Neutrophils # (1.3-7.7) k/uL Lymphocytes # (1.0-4.8) k/uL Monocytes # (0-1.0) k/uL Eosinophils # (0-0.7) k/uL Basophils # (0-0.2) k/uL PT (10.0-12.5) sec INR (<1.2) APTT (22.0-30.0) sec Sodium 142 (137-145) mmol/L Potassium 3.5 (3.5-5.1) mmol/L Chloride 107 (98-107) mmol/L Carbon Dioxide 25 (22-30) mmol/L Anion Gap 10 mmol/L BUN 22 H (9-20) mg/dL Creatinine 0.96 (0.66-1.25) mg/dL Est GFR (CKD-EPI)AfAm 83 (>60 ml/min/1.73 sqM) Est GFR (CKD-EPI)NonAf 72 (>60 ml/min/1.73 sqM) Glucose 160 H (74-99) mg/dL Plasma Lactic Acid Shady 1.6 (0.7-2.0) mmol/L Calcium 9.8 (8.4-10.2) mg/dL Magnesium 2.1 (1.6-2.3) mg/dL Total Bilirubin 1.3 (0.2-1.3) mg/dL AST 56 (17-59) U/L ALT 35 (4-49) U/L Alkaline Phosphatase 100 (38-126) U/L Troponin I <0.012 (0.000-0.034) ng/mL Total Protein 6.8 (6.3-8.2) g/dL Albumin 4.3 (3.5-5.0) g/dL Urine Color Urine Appearance (Clear) Urine pH (5.0-8.0) Ur Specific [place] (1.001-1.035) Urine Protein (Negative) Urine Glucose (UA) (Negative) Urine Ketones (Negative) Urine Blood (Negative) Urine Nitrite (Negative) Urine Bilirubin (Negative) Urine Urobilinogen (<2.0) mg/dL Ur Leukocyte Esterase (Negative) Influenza Type A (PCR) (Not Detectd) Influenza Type B (PCR) (Not Detectd) RSV (PCR) (Not Detectd) SARS-CoV-2 (PCR) (Not Detectd) 02/14/24 Range/Units 08:33 WBC (3.8-10.6) k/uL RBC (4.30-5.90) m/uL Hgb (13.0-17.5) gm/dL Hct (39.0-53.0) % MCV (80.0-100.0) fL MCH (25.0-35.0) pg MCHC (31.0-37.0) g/dL RDW (11.5-15.5) % Plt Count (150-450) k/uL MPV Neutrophils % % Lymphocytes % % Monocytes % % Eosinophils % % Basophils % % Neutrophils # (1.3-7.7) k/uL Lymphocytes # (1.0-4.8) k/uL Monocytes # (0-1.0) k/uL Eosinophils # (0-0.7) k/uL Basophils # (0-0.2) k/uL PT (10.0-12.5) sec INR (<1.2) APTT (22.0-30.0) sec Sodium (137-145) mmol/L Potassium (3.5-5.1) mmol/L Chloride (98-107) mmol/L Carbon Dioxide (22-30) mmol/L Anion Gap mmol/L BUN (9-20) mg/dL Creatinine (0.66-1.25) mg/dL Est GFR (CKD-EPI)AfAm (>60 ml/min/1.73 sqM) Est GFR (CKD-EPI)NonAf (>60 ml/min/1.73 sqM) Glucose (74-99) mg/dL Plasma Lactic Acid Shady (0.7-2.0) mmol/L Calcium (8.4-10.2) mg/dL Magnesium (1.6-2.3) mg/dL Total Bilirubin (0.2-1.3) mg/dL AST (17-59) U/L ALT (4-49) U/L Alkaline Phosphatase (38-126) U/L Troponin I (0.000-0.034) ng/mL Total Protein (6.3-8.2) g/dL Albumin (3.5-5.0) g/dL Urine Color Urine Appearance (Clear) Urine pH (5.0-8.0) Ur Specific [place] (1.001-1.035) Urine Protein (Negative) Urine Glucose (UA) (Negative) Urine Ketones (Negative) Urine Blood (Negative) Urine Nitrite (Negative) Urine Bilirubin (Negative) Urine Urobilinogen (<2.0) mg/dL Ur Leukocyte Esterase (Negative) Influenza Type A (PCR) Not Detected (Not Detectd) Influenza Type B (PCR) Not Detected (Not Detectd) RSV (PCR) Not Detected (Not Detectd) SARS-CoV-2 (PCR) Not Detected (Not Detectd) - EKG Data -: EKG Interpreted by Me EKG Comments: 12-lead Electrocardiogram Interpretation Note EKG was reviewed and interpreted by myself. 12-lead ECG performed at 0818 is interpreted by me as revealing atrial fibrillation at a rate of 87 beats per minute. Left axis deviation. QRS duration is 112 ms, QTc is 419 ms. PVCs present.. There were no ST or T wave abnormalities to suggest myocardial ischemia or injury. R wave progression across the precordium was delayed. By my interpretation this EKG is non-diagnostic for acute ischemia. Disposition Clinical Impression: Weakness Disposition: HOME SELF-CARE Condition: Good Instructions (If sedation given, give patient instructions): Weakness (ED) Is patient prescribed a controlled substance at d/c from ED?: No Referrals: Gisel Gonzalez MD [Primary Care Provider] - 1-2 days Time of Disposition: 10:35
[2024-02-14 08:54] LABS: INR 1.2 (<1.2); Partial Thromboplastin Time 28.4 sec (22.0-30.0); Prothrombin Time 12.4 sec (10.0-12.5)
[2024-02-14 09:02] LABS: ALT 35 U/L (4-49); AST 56 U/L (17-59); African American GFR (CKD) 83 (>60 ml/min/1.73 sqM); Albumin 4.3 g/dL (3.5-5.0); Alkaline Phosphatase 100 U/L (38-126); Anion Gap 10 mmol/L; Blood Urea Nitrogen 22 mg/dL (9-20); Calcium 9.8 mg/dL (8.4-10.2); Carbon Dioxide 25 mmol/L (22-30); Chloride 107 mmol/L (98-107); Glucose 160 mg/dL (74-99); Magnesium 2.1 mg/dL (1.6-2.3); Non-African American GFR(CKD) 72 (>60 ml/min/1.73 sqM); Potassium 3.5 mmol/L (3.5-5.1); Sodium 142 mmol/L (137-145); Total Bilirubin 1.3 mg/dL (0.2-1.3); Total Protein 6.8 g/dL (6.3-8.2)
--- NOTE | 2024-02-14 09:03 | XR ---
EXAMINATION TYPE: XR chest 2V DATE OF EXAM: 02/14/2024 COMPARISON: NONE HISTORY: Chest pain TECHNIQUE: Frontal and lateral views of the chest are obtained. FINDINGS: There is no focal air space opacity. No evidence for pneumothorax. No pleural effusion. The cardiac silhouette size is within normal limits. The osseous structures are grossly intact. IMPRESSION: 1. No acute cardiopulmonary process. [facility], , 02/14/2024 9:01 AM
[2024-02-14 10:30] LABS: Appearance,Urine Clear (Clear); Bilirubin,Urine Negative (Negative); Blood,Urine Negative (Negative); Color,Urine Colorless; Glucose,Urine (UA) 4+ (Negative); Ketones,Urine Negative (Negative); Leukocyte Esterase,Urine Negative (Negative); Nitrite,Urine Negative (Negative); Protein,Urine Negative (Negative); Specific Gravity,Urine 1.015 (1.001-1.035); Urobilinogen,Urine <2.0 mg/dL (<2.0)
[2024-02-14 10:56] VITALS: BP 137/80; PULSE 72; RESP 18; TEMP 97.6
== END 2024-02-14 10:56 | disposition home or self-care (01) ==
LOC: EC 08:01
CPT/HCPCS: 36415; 71046; 80053; 81003; 83605; 83735; 84484; 85025; 85610; 85730; 87636; 93005; 96360; 99285

== ENCOUNTER 2024-03-24 08:54 | Observation (INO) | payer MEDICARE ==
--- NOTE | 2024-03-24 09:23 | ED ---
General Adult HPI - General Chief complaint: Abdominal Pain Stated complaint: abd pain/weakness Time Seen by Provider: 03/24/24 09:00 Source: patient, RN notes reviewed, old records reviewed Mode of arrival: ambulatory Limitations: no limitations - History of Present Illness Initial comments: This is an 88-year-old male who presents emergency room complaining that he has been weak and fatigued ever since he has had COVID. Patient states the last month he lost about 10 pounds but he did go through a period of time where he just did not feel like eating. Patient states this morning had a little bit of stomach upset but he no longer has any stomach upset or abdominal pain. Patient denies any nausea vomiting diarrhea. Patient denies any headache patient denies numbness weakness. Patient [place] chest pain difficulty breathing shortness of breath. Patient has a history of atrial fibrillation. - Related Data Home Medications Medication Instructions Recorded Confirmed Losartan/Hydrochlorothiazide 1 tab PO QAM 11/24/17 02/14/24 [Losartan-Hctz 100-12.5 mg Tab] Atorvastatin [Lipitor] 40 mg PO HS 01/25/23 02/14/24 Finasteride [Proscar] 5 mg PO QAM 01/25/23 02/14/24 Multivitamins, Thera [Multivitamin 1 tab PO QAM 01/25/23 02/14/24 (formulary)] amLODIPine [Norvasc] 5 mg PO QAM 01/25/23 02/14/24 Apixaban [Eliquis] 5 mg PO BID 02/14/24 02/14/24 Biotin 5 mg PO QAM 02/14/24 02/14/24 Cholecalciferol (Vitamin D3) 75 mcg PO QAM 02/14/24 02/14/24 [Vitamin D3 (3000 Iu)] Empagliflozin [Jardiance] 25 mg PO QAM 02/14/24 02/14/24 Allergies Allergy/AdvReac Type Severity Reaction Status Date / Time latex Allergy Itching Verified 02/14/24 09:57 "sometimes" Review of Systems ROS Statement: Those systems with pertinent positive or pertinent negative responses have been documented in the HPI. ROS Other: All systems not noted in ROS Statement are negative. Past Medical History Past Medical History: Atrial Fibrillation, Cancer, Hypertension Additional Past Medical History / Comment(s): left elbow spur and bursitis- steroids Dec 2022,bladder Ca-received intrabladder chemo-2014 History of Any Multi-Drug Resistant Organisms: None Reported Past Surgical History: Orthopedic Surgery Additional Past Surgical History / Comment(s): rt torn meniscus,cystoscopy,maida cataracts Past Anesthesia/Blood Transfusion Reactions: No Reported Reaction Additional Past Anesthesia/Blood Transfusion Reaction / Comment(s): no hx blood transfusion Past Psychological History: No Psychological Hx Reported Smoking Status: Never smoker Past Alcohol Use History: Rare Past Drug Use History: None Reported - Past Family History Mother Family Medical History: No Reported History General Exam - General Exam Comments Initial Comments: GENERAL: Patient is well-developed and well-nourished. Patient is nontoxic and well- hydrated and is in mild distress. ENT: Neck is soft and supple. No significant lymphadenopathy is noted. Oropharynx is clear. Moist mucous membranes. Neck has full range of motion without eliciting any pain. EYES: The sclera were anicteric and conjunctiva were pink and moist. Extraocular movements were intact and pupils were equal round and reactive to light. Eyelids were unremarkable. PULMONARY: Unlabored respirations. Good breath sounds bilaterally. No audible rales rhonchi or wheezing was noted. CARDIOVASCULAR: Patient's heart rate is irregular and at about 70 bpm ABDOMEN: Soft and nontender with normal bowel sounds. SKIN: Skin is clear with no lesions or rashes and otherwise unremarkable. NEUROLOGIC: Patient is alert and oriented x3. Cranial nerves II through XII are grossly intact. Motor and sensory are also intact. Normal speech, volume and content. Symmetrical smile. MUSCULOSKELETAL: Normal extremities with adequate strength and full range of motion. LYMPHATICS: No significant lymphadenopathy is noted PSYCHIATRIC: Normal psychiatric evaluation. Limitations: no limitations Course Vital Signs 03/24/24 03/24/24 08:59 10:27 Temperature 97.7 F Pulse Rate 82 71 Respiratory 18 18 Rate Blood Pressure 133/76 141/86 O2 Sat by Pulse 100 96 Oximetry Medical Decision Making - Medical Decision Making EKG is interpreted by myself. EKG shows atrial fibrillation at 65 bpm QRS 108 QT interval 382 QTc is 394. Patient's EKG shows no ST segment elevation or depression Was pt. sent in by a medical professional or institution (, PA, CONSTRUCTION SALES MANAGER, urgent care, hospital, or care home...) When possible be specific @ -No Did you speak to anyone other than the patient for history (EMS, parent, family, police, friend...)? What history was obtained from this source @ -No Did you review nursing and triage notes (agree or disagree)? Why? @ -I reviewed and agree with nursing and triage notes Were old charts reviewed (outside hosp., previous admission, EMS record, old EKG, old radiological studies, urgent care reports/EKG's, care home records)? Report findings @ -No old charts were reviewed Differential Diagnosis? @ -Differential Weakness: Hypoglycemia, shock, sepsis, hyponatremia, anemia, infection, [place], ETOH, adverse medicine reaction, overdose, stroke, this is not meant to be an all-inclusive list. EKG interpreted by me (3pts min.). @ -As above X-rays interpreted by me (1pt min.). @ -Chest x-ray shows no acute abnormality CT interpreted by me (1pt min.). @ -None done U/S interpreted by me (1pt. min.). @ -None done What testing was considered but not performed or refused? (CT, X-rays, U/S, labs)? Why? @ -None What meds were considered but not given or refused? Why? @ -None Did you discuss the management of the patient with other professionals (professionals i.e. , PA, CONSTRUCTION SALES MANAGER, lab, RT, psych nurse, social services counselor, outside food server, teacher, seal delivery vehicle officer, returned case inspector)? Give summary @ -I spoke with Dr. Gonzalez he agreed to admit the patient I admitted the patient Was smoking cessation discussed for >3mins.? @ -No Was critical care preformed (if so, how long)? @ -No Were there social determinants of health that impacted care today? How? (Homelessness, low income, unemployed, alcoholism, drug addiction, transportation, low edu. Level, literacy, decrease access to med. care, intermediate, rehab)? @ -No Was there de-escalation of care discussed even if they declined (Discuss DNR or withdrawal of care, Hospice)? DNR status @ -No What co-morbidities impacted this encounter? (DM, HTN, Smoking, COPD, CAD, Cancer, CVA, ARF, Chemo, Hep., AIDS, mental health diagnosis, sleep apnea, morbid obesity)? @ -None Was patient admitted / discharged? Hospital course, mention meds given and route, prescriptions, significant lab abnormalities, going to OR and other pertinent info. @ -Patient's troponin was unexpectedly elevated so patient will stay is up for the patient and have troponins repeated with cardiology consult and will be admitted to Dr. Gonzalez Undiagnosed new problem with uncertain prognosis? @ -No Drug Therapy requiring intensive monitoring for toxicity (Heparin, Nitro, Insulin, Cardizem)? @ -No Were any procedures done? @ -No Diagnosis/symptom? @ -Elevated troponin Acute, or Chronic, or Acute on Chronic? @ -Acute Uncomplicated (without systemic symptoms) or Complicated (systemic symptoms)? @ -Complicated Side effects of treatment? @ -No Exacerbation, Progression, or Severe Exacerbation? @ -No Poses a threat to life or bodily function? How? (Chest pain, [place], NJ, pneumonia, PE, COPD, DKA, ARF, appy, cholecystitis, CVA, Diverticulitis, Homicidal, Suicidal, threat to staff... and all critical care pts) @ -No Diagnosis/symptom? @ -Generalized weakness Acute, or Chronic, or Acute on Chronic? @ -Acute Uncomplicated (without systemic symptoms) or Complicated (systemic symptoms)? @ -Complicated Side effects of treatment? @ -None Exacerbation, Progression, or Severe Exacerbation] @ -No Poses a threat to life or bodily function? @ -No - Lab Data Result diagrams: 03/24/24 09:39 03/24/24 09:39 Lab Results 03/24/24 03/24/24 03/24/24 Range/Units 09:39 09:39 09:39 WBC 8.2 (3.8-10.6) k/uL RBC 4.68 (4.30-5.90) m/uL Hgb 15.4 (13.0-17.5) gm/dL Hct 46.1 (39.0-53.0) % MCV 98.4 (80.0-100.0) fL MCH 32.9 (25.0-35.0) pg MCHC 33.4 (31.0-37.0) g/dL RDW 13.1 (11.5-15.5) % Plt Count 209 (150-450) k/uL MPV 7.4 Neutrophils % 82 % Lymphocytes % 11 % Monocytes % 5 % Eosinophils % 1 % Basophils % 0 % Neutrophils # 6.8 (1.3-7.7) k/uL Lymphocytes # 0.9 L (1.0-4.8) k/uL Monocytes # 0.4 (0-1.0) k/uL Eosinophils # 0.0 (0-0.7) k/uL Basophils # 0.0 (0-0.2) k/uL PT 12.5 (10.0-12.5) sec INR 1.2 H (<1.2) APTT 26.4 (22.0-30.0) sec Sodium 138 (137-145) mmol/L Potassium 3.9 (3.5-5.1) mmol/L Chloride 106 (98-107) mmol/L Carbon Dioxide 26 (22-30) mmol/L Anion Gap 6 mmol/L BUN 21 H (9-20) mg/dL Creatinine 0.79 (0.66-1.25) mg/dL Est GFR (CKD-EPI)AfAm >90 (>60 ml/min/1.73 sqM) Est GFR (CKD-EPI)NonAf 82 (>60 ml/min/1.73 sqM) Glucose 105 H (74-99) mg/dL Plasma Lactic Acid [place] (0.7-2.0) mmol/L Calcium 9.4 (8.4-10.2) mg/dL Magnesium 2.1 (1.6-2.3) mg/dL Total Bilirubin 1.3 (0.2-1.3) mg/dL AST 38 (17-59) U/L ALT 31 (4-49) U/L Alkaline Phosphatase 98 (38-126) U/L Troponin I (0.000-0.034) ng/mL Total Protein 6.8 (6.3-8.2) g/dL Albumin 4.3 (3.5-5.0) g/dL TSH 1.610 (0.465-4.680) mIU/L Urine Color Urine Appearance (Clear) Urine pH (5.0-8.0) Ur Specific [place] (1.001-1.035) Urine Protein (Negative) Urine Glucose (UA) (Negative) Urine Ketones (Negative) Urine Blood (Negative) Urine Nitrite (Negative) Urine Bilirubin (Negative) Urine Urobilinogen (<2.0) mg/dL Ur Leukocyte Esterase (Negative) 11/03/24/24 03/24/24 Range/Units 09:39 09:39 09:54 WBC (3.8-10.6) k/uL RBC (4.30-5.90) m/uL Hgb (13.0-17.5) gm/dL Hct (39.0-53.0) % MCV (80.0-100.0) fL MCH (25.0-35.0) pg MCHC (31.0-37.0) g/dL RDW (11.5-15.5) % Plt Count (150-450) k/uL MPV Neutrophils % % Lymphocytes % % Monocytes % % Eosinophils % % Basophils % % Neutrophils # (1.3-7.7) k/uL Lymphocytes # (1.0-4.8) k/uL Monocytes # (0-1.0) k/uL Eosinophils # (0-0.7) k/uL Basophils # (0-0.2) k/uL PT (10.0-12.5) sec INR (<1.2) APTT (22.0-30.0) sec Sodium (137-145) mmol/L Potassium (3.5-5.1) mmol/L Chloride (98-107) mmol/L Carbon Dioxide (22-30) mmol/L Anion Gap mmol/L BUN (9-20) mg/dL Creatinine (0.66-1.25) mg/dL Est GFR (CKD-EPI)AfAm (>60 ml/min/1.73 sqM) Est GFR (CKD-EPI)NonAf (>60 ml/min/1.73 sqM) Glucose (74-99) mg/dL Plasma Lactic Acid Shady 1.2 (0.7-2.0) mmol/L Calcium (8.4-10.2) mg/dL Magnesium (1.6-2.3) mg/dL Total Bilirubin (0.2-1.3) mg/dL AST (17-59) U/L ALT (4-49) U/L Alkaline Phosphatase (38-126) U/L Troponin I 0.083 H* (0.000-0.034) ng/mL Total Protein (6.3-8.2) g/dL Albumin (3.5-5.0) g/dL TSH (0.465-4.680) mIU/L Urine Color Colorless Urine Appearance Clear (Clear) Urine pH 7.5 (5.0-8.0) Ur Specific [place] 1.010 (1.001-1.035) Urine Protein Negative (Negative) Urine Glucose (UA) Negative (Negative) Urine Ketones Negative (Negative) Urine Blood Negative (Negative) Urine Nitrite Negative (Negative) Urine Bilirubin Negative (Negative) Urine Urobilinogen <2.0 (<2.0) mg/dL Ur Leukocyte Esterase Negative (Negative) Disposition Clinical Impression: Elevated troponin, Generalized weakness Disposition: ADMITTED IP TO THIS HOSP Referrals: Gisel Gonzalez MD [Primary Care Provider] - 1-2 days Time of Disposition: 11:18
[2024-03-24] MEDS: SODIUM CHLORIDE 0.9% 500 ML 500 ML IV STA (09:34)
--- NOTE | 2024-03-24 09:45 | XR ---
EXAMINATION TYPE: XR chest 2V DATE OF EXAM: 03/24/2024 9:41 AM COMPARISON: None. CLINICAL INDICATION: Male, 88 years old with history of Weakness, pain TECHNIQUE: XR chest 2V view(s) obtained. FINDINGS: The heart size is normal. The pulmonary vasculature is normal. The lungs are clear. IMPRESSION: 1. No acute pulmonary process. [facility], , 03/24/2024 9:42 AM
[2024-03-24 09:46] LABS: Basophils % (A) 0 %; Eosinophils % (A) 1 %; HCT 46.1 % (39.0-53.0); HGB 15.4 gm/dL (13.0-17.5); Lymphocytes # (A) 0.9 k/uL (1.0-4.8); Lymphocytes % (A) 11 %; MCH 32.9 pg (25.0-35.0); MCHC 33.4 g/dL (31.0-37.0); MCV 98.4 fL (80.0-100.0); Mean Platelet Volume 7.4; Monocytes # (A) 0.4 k/uL (0-1.0); Monocytes % (A) 5 %; Neutrophils # (A) 6.8 k/uL (1.3-7.7); Neutrophils % (A) 82 %; Platelet Count 209 k/uL (150-450); RBC 4.68 m/uL (4.30-5.90); RDW 13.1 % (11.5-15.5); WBC 8.2 k/uL (3.8-10.6)
[2024-03-24 09:59] LABS: Appearance,Urine Clear (Clear); Bilirubin,Urine Negative (Negative); Blood,Urine Negative (Negative); Color,Urine Colorless; Glucose,Urine (UA) Negative (Negative); Ketones,Urine Negative (Negative); Leukocyte Esterase,Urine Negative (Negative); Nitrite,Urine Negative (Negative); PH, Urine 7.5 (5.0-8.0); Protein,Urine Negative (Negative); Urobilinogen,Urine <2.0 mg/dL (<2.0)
[2024-03-24 10:02] LABS: INR 1.2 (<1.2); Partial Thromboplastin Time 26.4 sec (22.0-30.0); Prothrombin Time 12.5 sec (10.0-12.5)
[2024-03-24 10:05] LABS: ALT 31 U/L (4-49); AST 38 U/L (17-59); African American GFR (CKD) >90 (>60 ml/min/1.73 sqM); Albumin 4.3 g/dL (3.5-5.0); Alkaline Phosphatase 98 U/L (38-126); Anion Gap 6 mmol/L; Blood Urea Nitrogen 21 mg/dL (9-20); Calcium 9.4 mg/dL (8.4-10.2); Carbon Dioxide 26 mmol/L (22-30); Chloride 106 mmol/L (98-107); Glucose 105 mg/dL (74-99); Magnesium 2.1 mg/dL (1.6-2.3); Non-African American GFR(CKD) 82 (>60 ml/min/1.73 sqM); Potassium 3.9 mmol/L (3.5-5.1); Sodium 138 mmol/L (137-145); Total Bilirubin 1.3 mg/dL (0.2-1.3); Total Protein 6.8 g/dL (6.3-8.2)
[2024-03-24] MEDS ORDERED: NITROGLYCERIN SL TABS 0.4 MG TAB SUBLINGUAL PRN (11:19)
[2024-03-24] MEDS: ASPIRIN 81 MG PO STA (11:33)
[2024-03-24] MEDS: NITROGLYCERIN OINT 1 INCH/GM PACKET TOPICAL SCH (11:34)
--- NOTE | 2024-03-24 13:59 | P.CRDCN ---
History of Present Illness History of present illness: HISTORY OF PRESENT ILLNESS: This is a 88-year-old male with a past medical history significant for atrial fibrillation, hypertension, hyperlipidemia, and valvular heart disease. Patient follows in the office with Dr. Lim. We have been asked to see the patient in consultation for elevated troponins. Patient examined at the bedside in the emergency room. Patient presented to the hospital for chief complaint of weakness. Patient states he woke up this morning and just felt so weak he felt like he could not get out of bed. He does report having a stomachache this morning which she states he gets once in a while in the mornings. He denied having any chest pain or pressure. Patient reports that he is fairly active at baseline and was recently out raking leaves without any chest discomfort or shortness of breath. He denied any shortness of breath. Denied any dizziness or lightheadedness. Denied any palpitations. Bedside telemetry reveals atrial fibrillation with controlled ventricular rate. Patient was found to have elevated troponins although flat. DIAGNOSTICS: - EKG reveals atrial fibrillation with controlled ventricular rate. - Chest xray negative for acute process - Laboratory data: WBC 8.2. Hemoglobin 15.4. Platelet count 209. Sodium 138. Potassium 3.9. BUN 21. Creatinine 0.79. Lactic acid 1.2. Troponin 0.083. 0.085. TSH 1.610. - Current home cardiac medications include Eliquis 5 mg twice a day, Lipitor 40 mg at night, losartanhydrochlorothiazide 100-12.5 mg daily, and amlodipine 5 mg daily - Most recent echocardiogram obtained in December 2023 revealed normal EF, mild AR, moderate MR, moderate TR - Cardiac catheterization history: Patient denies -Patient underwent Lexiscan stress test in November 2023 which was negative for ischemia REVIEW OF SYSTEMS: At the time of my exam: CONSTITUTIONAL: Denies fever or chills. HEENT: Denies blurred vision, vision changes, or eye pain. Denies hemoptysis CARDIOVASCULAR: Denies chest pain. Denies orthopnea. Denies PND. Denies palpitations RESPIRATORY: Denies shortness of breath. GASTROINTESTINAL: Denies abdominal pain. Denies nausea or vomiting. HEMATOLOGIC: Denies bleeding disorders. GENITOURINARY: Denies any blood in urine. SKIN: Denies pruitis. Denies rash. PHYSICAL EXAM: VITAL SIGNS: Reviewed. GENERAL: Well-developed in no acute distress. HEENT: Head is normocephalic. Pupils are equal, round. Sclerae anicteric. Mucous membranes of the mouth are moist. Neck supple. No JVD or thyromegaly LUNGS: Respirations even and unlabored. Lungs essentially clear to auscultation bilaterally. HEART: Irregular rate and rhythm. S1 and S2 heard. Systolic murmur noted. ABDOMEN: Soft. Nondistended. Nontender. EXTREMITIES: Normal range of motion. No clubbing or cyanosis. Peripheral pulses intact. No lower extremity edema NEUROLOGIC: Awake and alert. Oriented x 3. 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 However patient was found to have elevated troponins, although flat x 2 specimens Obtain third troponin Discussed medical management versus cardiac catheterization. Patient is unsure of his decision at this time. We will hold Eliquis. Begin IV heparin. Add aspirin 81 mg daily Continue additional home cardiac medications Obtain 2D echo to assess cardiac structure and function Patient may have breakfast tomorrow morning and then n.p.o. for possible heart cath tomorrow pending echo results and trend of troponins Further recommendations pending patient course Nurse practitioner note has been reviewed by physician. Signing provider agrees with the documented findings, assessment, and plan of care documented by ELECTROTHERAPIST as a scribe. Past Medical History Past Medical History: Atrial Fibrillation, Cancer, Hypertension Additional Past Medical History / Comment(s): left elbow spur and bursitis- steroids Dec 2022,bladder Ca-received intrabladder chemo-2014 History of Any Multi-Drug Resistant Organisms: None Reported Past Surgical History: Orthopedic Surgery Additional Past Surgical History / Comment(s): rt torn meniscus,cystoscopy,maida cataracts Past Anesthesia/Blood Transfusion Reactions: No Reported Reaction Additional Past Anesthesia/Blood Transfusion Reaction / Comment(s): no hx blood transfusion Past Psychological History: No Psychological Hx Reported Smoking Status: Never smoker Past Alcohol Use History: Rare Past Drug Use History: None Reported - Past Family History Mother Family Medical History: No Reported History Medications and Allergies Home Medications Medication Instructions Recorded Confirmed Type Losartan/Hydrochlorothiazide 1 tab PO DAILY 11/24/17 03/24/24 History [Losartan-Hctz 100-12.5 mg Tab] Atorvastatin [Lipitor] 40 mg PO HS 01/25/23 03/24/24 History Finasteride [Proscar] 5 mg PO DAILY 01/25/23 03/24/24 History Multivitamins, Thera [Multivitamin 1 tab PO DAILY 01/25/23 03/24/24 History (formulary)] amLODIPine [Norvasc] 5 mg PO DAILY 01/25/23 03/24/24 History Apixaban [Eliquis] 5 mg PO BID 02/14/24 03/24/24 History Cholecalciferol (Vitamin D3) 75 mcg PO DAILY 02/14/24 03/24/24 History [Vitamin D3 (3000 Iu)] Allergies Allergy/AdvReac Type Severity Reaction Status Date / Time latex Allergy Itching Verified 03/24/24 11:42 "sometimes" Physical Exam Vitals: Vital Signs Temp Pulse Resp BP Pulse Ox 03/24/24 12:17 72 20 131/78 98 03/24/24 11:31 70 18 136/96 98 03/24/24 10:27 71 18 141/86 96 03/24/24 08:59 97.7 F 82 18 133/76 100 Intake and Output 03/23/24 03/24/24 03/24/24 22:59 06:59 14:59 Other: Weight 67.132 kg Results 03/24/24 09:39 03/24/24 09:39 Cardiac Enzymes 03/24/24 03/24/24 03/24/24 Range/Units 09:39 09:39 11:50 AST 38 (17-59) U/L Troponin I 0.083 H* 0.085 H* (0.000-0.034) ng/mL Coagulation 03/24/24 Range/Units 09:39 PT 12.5 (10.0-12.5) sec APTT 26.4 (22.0-30.0) sec CBC 03/24/24 Range/Units 09:39 WBC 8.2 (3.8-10.6) k/uL RBC 4.68 (4.30-5.90) m/uL Hgb 15.4 (13.0-17.5) gm/dL Hct 46.1 (39.0-53.0) % Plt Count 209 (150-450) k/uL Comprehensive Metabolic Panel 03/24/24 Range/Units 09:39 Sodium 138 (137-145) mmol/L Potassium 3.9 (3.5-5.1) mmol/L Chloride 106 (98-107) mmol/L Carbon Dioxide 26 (22-30) mmol/L BUN 21 H (9-20) mg/dL Creatinine 0.79 (0.66-1.25) mg/dL Glucose 105 H (74-99) mg/dL Calcium 9.4 (8.4-10.2) mg/dL AST 38 (17-59) U/L ALT 31 (4-49) U/L Alkaline Phosphatase 98 (38-126) U/L Total Protein 6.8 (6.3-8.2) g/dL Albumin 4.3 (3.5-5.0) g/dL Current Medications Generic Name Dose Route Start Last Admin Trade Name Freq PRN Reason Stop Dose Admin Amlodipine Besylate 5 mg 03/25/24 09:00 Amlodipine [address] [facility] Aspirin 81 mg 03/25/24 09:00 Aspirin [address] [facility] Atorvastatin Calcium 40 mg 03/24/24 21:00 Atorvastatin 40 [address] Tab [address] [facility] Heparin Sodium (Porcine) 0 unit 03/24/24 13:13 Heparin Sodium 1,000 Un/Ml (10ml Vl) IV PER PROTOCOL PRN Low PTT Protocol Hydrochlorothiazide 12.5 mg 03/25/24 09:00 Hydrochlorothiazide 12.5 [address] Cap [address] [facility] Heparin Sodium/Sodium Chloride 250 mls @ 8.056 mls/hr 03/24/24 13:15 25,000 unit/ Sodium Chloride IV .Q24H [facility] Protocol 12 UNITS/KG/HR Losartan Potassium 100 mg 03/25/24 09:00 Losartan 50 Mg Tab PO DAILY [facility] Nitroglycerin 0.4 mg 03/24/24 11:19 Nitroglycerin Sl Tabs 0.4 Mg Tab SUBLINGUAL Q5M PRN Chest Pain Nitroglycerin 1 inch 03/24/24 12:00 03/24/24 11:34 Nitroglycerin Oint 1 Inch/Gm Packet TOPICAL [address] [facility] Administration Intake and Output 03/23/24 03/24/24 03/24/24 22:59 06:59 14:59 Other: Weight 67.132 kg Patient Weight 03/25/24 06:59 Weight 67.132 kg 03/24/24 09:39 03/24/24 09:39
[2024-03-24] MEDS: HEPARIN SOD,PORK IN 0.45% NACL 25,000 UNIT in 0.45% NACL 1 250ML.BAG IV SCH (14:07)
[2024-03-24] MEDS ORDERED: HYDROmorphone 0.5 MG/0.5 ML SYRINGE IVP PRN (14:15)
[2024-03-24 15:07] LABS: Basophils % (A) 0 %; Eosinophils # (A) 0.1 k/uL (0-0.7); Eosinophils % (A) 1 %; HCT 42.7 % (39.0-53.0); HGB 13.9 gm/dL (13.0-17.5); Lymphocytes # (A) 1.2 k/uL (1.0-4.8); Lymphocytes % (A) 13 %; MCH 32.5 pg (25.0-35.0); MCHC 32.5 g/dL (31.0-37.0); MCV 100.1 fL (80.0-100.0); Mean Platelet Volume 7.5; Monocytes # (A) 0.4 k/uL (0-1.0); Monocytes % (A) 5 %; Neutrophils # (A) 7.5 k/uL (1.3-7.7); Neutrophils % (A) 80 %; Platelet Count 196 k/uL (150-450); RBC 4.27 m/uL (4.30-5.90); RDW 13.1 % (11.5-15.5); WBC 9.3 k/uL (3.8-10.6)
[2024-03-24 15:16] LABS: INR 1.2 (<1.2); Partial Thromboplastin Time 30.6 sec (22.0-30.0); Prothrombin Time 13.1 sec (10.0-12.5)
[2024-03-24] MEDS ORDERED: IOPAMIDOL CONTRAST (ORAL USE) VIAL PO PRN (15:24)
--- NOTE | 2024-03-24 17:26 | CT ---
EXAMINATION TYPE: CT abdomen pelvis wo con DATE OF EXAM: 03/24/2024 5:14 PM COMPARISON: None. CLINICAL INDICATION: Male, 88 years old with history of abd pain, wt loss; Lower abdominal pain, cons tipation. Abnormal weight loss. TECHNIQUE: Axial CT abdomen pelvis wo con;Sagittal and coronal reformats were created on a separate workstation. Contrast used: mL of , (none if empty) Oral contrast used: with Oral Contrast (none if empty) CT DLP: 485 mGycm, Automated exposure control for dose reduction was used. FINDINGS: LOWER CHEST: Unremarkable ABDOMEN LIVER: Unremarkable GALLBLADDER AND BILE DUCTS: Unremarkable. PANCREAS: Unremarkable. SPLEEN: Unremarkable. ADRENAL GLANDS: Unremarkable. KIDNEYS AND URETERS: No evidence of hydronephrosis or renal calculus. The ureters are unremarkable. PELVIS BLADDER: No evidence for wall thickening or mass given limitations of exam. REPRODUCTIVE: Prostate is enlarged in size measuring 5.2 cm in transverse dimension. ABDOMEN & PELVIS STOMACH AND BOWEL: Mild to moderate amount stool throughout the colon. Scattered colonic diverticula. The appendix is normal. No evidence of bowel obstruction. PERITONEUM/RETROPERITONEUM: No evidence of pneumoperitoneum or free fluid. VASCULATURE: No evidence of aortic aneurysm. MUSCULOSKELETAL: No acute osseous abnormalities. Moderate disc degeneration changes are present throu ghout the thoracolumbar spine. Osteophyte formation and joint space narrowing of the hips. Mild scoli osis changes of the spine. Cam deformities of the femoral heads. LYMPH NODES: No gross evidence for lymphadenopathy. SOFT TISSUE/ABDOMINAL WALL: Bilateral fat-containing inguinal hernias. IMPRESSION: 1. No evidence for acute abdominal process. No obstructive uropathy or renal calculus. The appendix is normal. No evidence for diverticulitis. There are scattered colonic diverticula present. No eviden ce for bowel obstruction. No evidence for lymphadenopathy or mass. 2. Mild to moderate amount stool throughout the colon. 3. Prostatomegaly, correlate with serum PSA. 4. Fat-containing bilateral inguinal hernias. 5. Colonic diverticulosis. [facility], Workstation: [id number], 03/24/2024 5:23 PM
[2024-03-24] MEDS: HEPARIN SODIUM 1,000 UN/ML (10ML VL) IV PRN (20:14)
[2024-03-24] MEDS: ATORVASTATIN 40 MG TAB PO SCH (21:59)
--- NOTE | 2024-03-24 22:18 | HP ---
HISTORY AND PHYSICAL CHIEF COMPLAINT: Weakness, tiredness, and also elevated troponin. HISTORY OF PRESENT ILLNESS: This is an 88-year-old gentleman with a past medical history of multiple medical problems, being followed by Dr. Gonzalez in the outpatient setting, complaining of significant weakness. The patient is unable to get up from the bed today. The patient came to [facility], was found to have troponin elevated up to 0.083 and the patient was admitted for further evaluation and treatment. The patient also complains of abdominal discomfort. EKG showed atrial fibrillation. Cardiology evaluation in progress. 2D echo has been ordered. The patient reports significant weakness after the COVID infection, but the patient apparently had diminished appetite and lost about 10 pounds recently. There is no history of any fever, rigors, or chills. PAST MEDICAL HISTORY: Reviewed include history of atrial fibrillation, hypertension. Rest of the history and rest of the chart is reviewed. HOME MEDICATIONS: Reviewed include Norvasc. Doses and rest of medications reviewed. ALLERGIES: Latex. FAMILY HISTORY: No history of any heart disease or strokes in the family. SOCIAL HISTORY: No history of smoking. REVIEW OF SYSTEMS: Fourteen-point review is negative except as mentioned earlier. PHYSICAL EXAMINATION: VITAL SIGNS: Pulse 53, blood pressure 110/69, respirations 18. HEENT: Conjunctivae normal. CARDIOVASCULAR: S1, S2. RESPIRATIONS: Breath sounds are diminished in the bases. ABDOMEN: Soft, nontender. No mass palpable. LEGS: No edema. NERVOUS SYSTEM: Nonfocal. LABORATORY DATA: WBC 9.2, hemoglobin 13.9. Rest of the labs are noted. ASSESSMENT: 1. Generalized weakness and tiredness for evaluation. 2. Troponin elevated up to 0.085, rule out acute mby-CU-bxbzjcw elevation myocardial infarction. 3. Weight loss of 10 pounds. 4. Hypertension. 5. Atrial fibrillation. RECOMMENDATIONS AND DISCUSSION: This is an 88-year-old gentleman presented with multiple complex medical issues. We will monitor the patient closely. Continue the current management and continue symptomatic treatment. IV heparin has been initiated. Closely follow with Cardiology, 2D echo. Possible cardiac cath. I would also recommend CT scan of the abdomen and pelvis to complete the workup also. Prognosis guarded. Dr. Gonzalez will follow on Tuesday. MMODL / IJN: [id number] /
[2024-03-25 02:54] LABS: Basophils % (A) 0 %; Eosinophils # (A) 0.1 k/uL (0-0.7); Eosinophils % (A) 1 %; HCT 39.9 % (39.0-53.0); Lymphocytes # (A) 1.9 k/uL (1.0-4.8); Lymphocytes % (A) 19 %; MCHC 32.6 g/dL (31.0-37.0); MCV 98.3 fL (80.0-100.0); Mean Platelet Volume 7.3; Monocytes # (A) 0.5 k/uL (0-1.0); Monocytes % (A) 5 %; Neutrophils # (A) 7.4 k/uL (1.3-7.7); Neutrophils % (A) 74 %; Platelet Count 167 k/uL (150-450); RBC 4.05 m/uL (4.30-5.90); RDW 13.2 % (11.5-15.5)
[2024-03-25 02:58] LABS: INR 1.2 (<1.2); Prothrombin Time 12.9 sec (10.0-12.5)
[2024-03-25 03:16] LABS: AST 33 U/L (17-59); African American GFR (CKD) >90 (>60 ml/min/1.73 sqM); Albumin 3.3 g/dL (3.5-5.0); Blood Urea Nitrogen 21 mg/dL (9-20); Carbon Dioxide 26 mmol/L (22-30); Glucose 100 mg/dL (74-99); Non-African American GFR(CKD) 80 (>60 ml/min/1.73 sqM); Total Bilirubin 0.8 mg/dL (0.2-1.3); Total Protein 5.5 g/dL (6.3-8.2)
[2024-03-25 03:24] LABS: ALT 27 U/L (4-49); Alkaline Phosphatase 83 U/L (38-126); Anion Gap 0 mmol/L; Calcium 8.7 mg/dL (8.4-10.2); Chloride 110 mmol/L (98-107); Potassium 3.9 mmol/L (3.5-5.1); Sodium 136 mmol/L (137-145)
[2024-03-25] MEDS: hydroCHLOROthiazide 12.5 MG CAP PO SCH (08:41)
[2024-03-25] MEDS: amLODIPine 5 MG TAB PO SCH (08:41)
[2024-03-25] MEDS: ASPIRIN 81 MG PO SCH (08:41)
[2024-03-25] MEDS: LOSARTAN 50 MG TAB PO SCH (08:41)
[2024-03-25] MEDS ORDERED: ASPIRIN 325 MG TAB PO SCH (09:00)
[2024-03-25] MEDS ORDERED: ALPRAZolam 0.5 MG TAB PO PRN (09:32)
[2024-03-25] MEDS ORDERED: NITROGLYCERIN SL TABS 0.4 MG TAB SUBLINGUAL PRN (09:32)
[2024-03-25] MEDS ORDERED: ALPRAZolam 0.25 MG TAB PO PRN (09:32)
[2024-03-25] MEDS: ASPIRIN 325 MG TAB PO STA (09:44)
[2024-03-25] MEDS: ATORVASTATIN 80 MG TAB PO STA (10:06)
[2024-03-25] MEDS: ASPIRIN 81 MG PO ONE (12:10)
[2024-03-25] MEDS: fentaNYL (PF) 50 MCG/ML 2 ML AMP IVP ONE (12:13)
[2024-03-25] MEDS: LIDOCAINE 1% INJ 10MG/ML (20 ML MDV) SQ ONE (12:15)
[2024-03-25] MEDS: MIDAZOLAM 2 MG/2 ML VIAL IVP ONE (12:16)
[2024-03-25] MEDS: VERAPAMIL SYRINGE (5 MG/10 ML) INTRAARTER ONE (12:17)
[2024-03-25] MEDS: IV FLUID CONTINUATION 1,000 ML IV ONE (12:21)
[2024-03-25] MEDS: HEPARIN SODIUM,PORCINE 10,000 UNIT in SODIUM CHLORIDE 0.9% 1,000 ML IRRIGATION PRN (12:22)
[2024-03-25] MEDS: HEPARIN SODIUM,PORCINE (1 ML) 2,500 UNIT in SODIUM CHLORIDE 0.9% 250 ML IRRIGATION PRN (12:23)
[2024-03-25] MEDS: HEPARIN SODIUM 1,000 UN/ML (10ML VL) IV ONE (12:27)
[2024-03-25] MEDS: IOPAMIDOL-370 100ML BTL INJ ONE (12:32)
[2024-03-25] MEDS ORDERED: RX INFO: IV CONTRAST WAS GIVEN 1 EACH MISC MISCELLANE PRN (12:44)
--- NOTE | 2024-03-25 12:52 | P.CARDCATH ---
Date of Procedure: 03/25/24 Description of Procedure: Cardiac Catheterization: The patient is an 88-year-old male with a known history of persistent atrial fibrillation, hyperlipidemia who presented with sudden weakness and mild troponin elevation but no chest discomfort. Recommendations were made regarding cardiac catheterization, the risks and the complications were discussed with the patient who is in full understanding and agreement. Procedure Description: Patient was brought to laboratory helper in fasting semi-sedated state after receiving Fentanyl and Benadryl achieiving moderate conscious sedated state. Using Xylocaine Anesthesia and modified Seldinger technique, a 6-Ghanaian sheath was introduced in the right radial artery . Subsequently, selective coronary angiography was performed using a 5-Ghanaian 3.5 bend Eli catheter. Multiple views of the coronary artery including hemiaxial views were obtained. Following that, catheter and sheath were removed. Hemostasis was obtained with deployment of vascular band . There was no immediate complication. Patient was returned to room in stable condition. Of note, the patient received a total of 3500 units of intravenous heparin as well as intra-arterial verapamil. Findings: Left main: This is a large size vessel, bifurcating into LAD and left circumflex, left main has no obstructive disease LAD: This is a large size vessel, reaching to the apex, giving rise to 2 moderately sized diagonal branch. The LAD and its branches have no significant obstructive disease Left circumflex: This is a nondominant vessel, giving rise to 2 obtuse marginal branch. The left circumflex has no significant obstructive disease RCA: This is a dominant vessel large in caliber bifurcating distally to PDA and PLV. The mid RCA has mild intimal disease of 10%, the rest of the vessel has no high-grade stenosis Left Ventriculogram: Not performed Conclusion: 1. 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 Right dominance Recommendations: I see no evidence of significant obstructive disease to explain his symptoms, his symptoms of weakness could be related to slow ventricular response although not documented since his admission, he will be followed as an outpatient for further recommendations. The findings and the recommendations were discussed with the patient and the family and they were in full understanding and agreement. Duration of sedation is 20 minutes.
[2024-03-25] MEDS: SODIUM CHLORIDE 0.9% 1,000 ML IV SCH (13:22)
[2024-03-25 14:17] LABS: African American GFR (CKD) >90 (>60 ml/min/1.73 sqM); Anion Gap 5 mmol/L; Blood Urea Nitrogen 17 mg/dL (9-20); Calcium 9.2 mg/dL (8.4-10.2); Carbon Dioxide 23 mmol/L (22-30); Chloride 111 mmol/L (98-107); Glucose 96 mg/dL (74-99); Non-African American GFR(CKD) 83 (>60 ml/min/1.73 sqM); Potassium 3.8 mmol/L (3.5-5.1); Sodium 139 mmol/L (137-145)
[2024-03-25 14:24] LABS: LDL Cholesterol,Calculated 33.7 mg/dL (0.0-131.0); VLDL Calculation 10.18 mg/dL (5.00-40.00)
[2024-03-25] MEDS: FINASTERIDE 5 MG TAB PO SCH (17:03)
[2024-03-25 20:02] VITALS: RESP 16
[2024-03-26 03:32] LABS: Basophils % (A) 0 %; Eosinophils # (A) 0.1 k/uL (0-0.7); Eosinophils % (A) 1 %; HCT 40.4 % (39.0-53.0); Lymphocytes # (A) 1.6 k/uL (1.0-4.8); Lymphocytes % (A) 15 %; MCHC 32.3 g/dL (31.0-37.0); MCV 99.3 fL (80.0-100.0); Mean Platelet Volume 8.2; Monocytes # (A) 0.4 k/uL (0-1.0); Monocytes % (A) 4 %; Neutrophils # (A) 8.1 k/uL (1.3-7.7); Neutrophils % (A) 78 %; Platelet Count 170 k/uL (150-450); RBC 4.07 m/uL (4.30-5.90); RDW 13.6 % (11.5-15.5); WBC 10.3 k/uL (3.8-10.6)
[2024-03-26 03:41] VITALS: TEMP 98.2
[2024-03-26 03:46] LABS: African American GFR (CKD) >90 (>60 ml/min/1.73 sqM); Anion Gap 4 mmol/L; Blood Urea Nitrogen 21 mg/dL (9-20); Calcium 8.8 mg/dL (8.4-10.2); Carbon Dioxide 24 mmol/L (22-30); Chloride 110 mmol/L (98-107); Glucose 93 mg/dL (74-99); Non-African American GFR(CKD) 80 (>60 ml/min/1.73 sqM); Potassium 4.1 mmol/L (3.5-5.1); Sodium 138 mmol/L (137-145)
--- NOTE | 2024-03-26 05:36 | PN ---
PROGRESS NOTE DATE OF SERVICE: 03/25/2024 SUBJECTIVE: This is an 88-year-old gentleman, admitted with weakness and elevated troponin. He underwent cardiac catheterization by Cardiology, which showed mild obstructive coronary RCA and medical treatment is recommended. No chest pain. No palpitation. PHYSICAL EXAMINATION: VITAL SIGNS: Pulse is 76, blood pressure ntd, respirations 16. CHEST: Clear to auscultation. CARDIOVASCULAR: S1, S2. ABDOMEN: Soft, nontender. No mass palpable. NERVOUS SYSTEM: Nonfocal. LABORATORY DATA: Reviewed. ASSESSMENT: 1. Generalized weakness and tiredness for evaluation. 2. Troponin elevated up to 0.085. Possible acute qdr-ED-vitrugh-elevation myocardial infarction. 3. Status post cardiac cath showing mild obstructive coronary disease. 4. Weight loss of 10 pounds. 5. Hypertension. 6. Atrial fibrillation. RECOMMENDATIONS AND DISCUSSION: Recommended to continue current medications, symptomatic treatment. Repeat labs. Otherwise, nutritional supplement. Dietary evaluation and CT of the abdomen showed no significant abnormalities. Recommended serum PSA also. Dr. Gonzalez will follow tomorrow. PT and OT evaluation. MMODL / IJN: [id number] / JOHANNA
[2024-03-26] MEDS: APIXABAN 5 MG TAB PO SCH (07:33)
[2024-03-26] MEDS: CHOLECALCIFEROL 25 MCG (1000 IU) TABLET PO SCH (07:33)
[2024-03-26] MEDS: MULTIVITAMINS, THERA 1 EACH TAB PO SCH (07:34)
[2024-03-26 11:44] VITALS: BP 122/65; PULSE 72
--- NOTE | 2024-03-26 13:50 | CA ---
Transthoracic Echo Report Name: Jacob Ojeda Age: 88 Gender: M : 1935 Exam Date: 03/26/2024 08:05 Exam Location: [facility] Ht (in): 69 Wt (lb): 148 Ordering Physician: Ursula More Attending/Referring Phys: [id number], Derik Overlock Sewing Machine Operator Barb Solorio, MARY KATE Procedure CPT: Indications: lv function, elevated trops Cardiac Hx: Technical Quality: Good Contrast 1: Total Dose (mL): Contrast 2: Total Dose (mL): MEASUREMENTS (Male / Female) Normal Values 2D ECHO LV Diastolic Diameter PLAX 4.6 cm 4.2 - 5.9 / 3.9 - 5.3 cm LV Systolic Diameter PLAX 3.8 cm IVS Diastolic Thickness 1.4 cm 0.6 - 1.0 / 0.6 - 0.9 cm LVPW Diastolic Thickness 1.4 cm 0.6 - 1.0 / 0.6 - 0.9 cm LV Relative Wall Thickness 0.6 RV Internal Dim ED PLAX 3.4 cm LA Systolic Diameter LX 3.7 cm 3.0 - 4.0 / 2.7 - 3.8 cm LV Diastolic Volume MOD 4C 109.8 cm??? LV Systolic Volume MOD 4C 60.4 cm??? LV Ejection Fraction MOD 4C 44.9 % LV Cardiac Index MOD 4C 1966.3 cm???/min???m??? LV Diastolic Length 4C 8.1 cm LV Systolic Length 4C 7.1 cm LV Diastolic Volume MOD 2C 79.4 cm??? LV Systolic Volume MOD 2C 40.3 cm??? LV Ejection Fraction MOD 2C 49.3 % LV Cardiac Index MOD 2C 1559.8 cm???/min???m??? LV Diastolic Length 2C 7.8 cm LV Systolic Length 2C 6.8 cm M-MODE Aortic Root Diameter MM 3.5 cm AV Cusp Separation MM 2.3 cm DOPPLER AV Peak Velocity 120.6 cm/s AV Peak Gradient 5.8 mmHg MV Area PHT 3.5 cm??? TR Peak Velocity 256.1 cm/s TR Peak Gradient 26.2 mmHg Right Ventricular Systolic Press 36.2 mmHg FINDINGS Left Ventricle Left ventricular ejection fraction is estimated at 50-55 %. Moderate concentric left ventricular hypertrophy. Left ventricular cavity size normal. Right Ventricle Mild right ventricular dilatation. Mild pulmonary hypertension. Right Atrium Moderate right atrial dilatation. No right atrial thrombus or mass seen. Left Atrium Moderate left atrial dilatation Mitral Valve Structurally normal mitral valve. Trace mitral regurgitation. Aortic Valve Trileaflet aortic valve. Thickened aortic valve without stenosis. Tricuspid Valve Structurally normal tricuspid valve. Mild tricuspid regurgitation. Pulmonic Valve Structurally normal pulmonic valve. No pulmonic regurgitation. Pericardium No pericardial or pleural effusion. Aorta Normal size aortic root and proximal ascending aorta. CONCLUSIONS LVEF 50 to 55% Moderate concentric LVH No obvious regional wall motion abnormality Moderate biatrial dilatation No significant valvular dysfunction Previewed by: Dr Heath Gifford (Electronically Signed) Final Date: 26 March 2024 13:49
--- NOTE | 2024-03-26 14:12 | P.PN ---
Subjective Progress Note Date: 03/26/24 HISTORY OF PRESENT ILLNESS: This is a 88-year-old male with a past medical history significant for atrial fibrillation, hypertension, hyperlipidemia, and valvular heart disease. Patient follows in the office with Dr. Lim. We have been asked to see the patient in consultation for elevated troponins. Patient examined at the bedside in the emergency room. Patient presented to the hospital for chief complaint of weakness. Patient states he woke up this morning and just felt so weak he felt like he could not get out of bed. He does report having a stomachache this morning which she states he gets once in a while in the mornings. He denied having any chest pain or pressure. Patient reports that he is fairly active at baseline and was recently out raking leaves without any chest discomfort or shortness of breath. He denied any shortness of breath. Denied any dizziness or lightheadedness. Denied any palpitations. Bedside telemetry reveals atrial fibrillation with controlled ventricular rate. Patient was found to have elevated troponins although flat. DIAGNOSTICS: - EKG reveals atrial fibrillation with controlled ventricular rate. - Chest xray negative for acute process - Laboratory data: WBC 8.2. Hemoglobin 15.4. Platelet count 209. Sodium 138. Potassium 3.9. BUN 21. Creatinine 0.79. Lactic acid 1.2. Troponin 0.083. 0.085. TSH 1.610. - Current home cardiac medications include Eliquis 5 mg twice a day, Lipitor 40 mg at night, losartanhydrochlorothiazide 100-12.5 mg daily, and amlodipine 5 mg daily - Most recent echocardiogram obtained in December 2023 revealed normal EF, mild AR, moderate MR, moderate TR - Cardiac catheterization history: Patient denies -Patient underwent Lexiscan stress test in November 2023 which was negative for ischemia 03/26/2024 Patient seen and examined. He underwent cardiac catheterization yesterday with Dr. 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 Echocardiogram reveals EF 55%, moderate concentric LVH, moderate biatrial dilatation. No significant valvular dysfunction. Patient states that he has ambulated in the hallway but becomes can feet fatigue and needs to come back to his room and lay down. This has been a new phenomenon for him since October which limits his activity. No complaints of chest pain or chest pressure. He is in permanent atrial fibrillation with rate control. Blood pressure 122/65, heart rate 72, pulse ox 97% on room air. Repeat blood work reveals hemoglobin 13. Potassium 4.1, creatinine 0.81. PHYSICAL EXAM: VITAL SIGNS: Reviewed. GENERAL: Well-developed in no acute distress. HEENT: Head is normocephalic. Pupils are equal, round. Sclerae anicteric. Mucous membranes of the mouth are moist. Neck supple. No JVD or thyromegaly LUNGS: Respirations even and unlabored. Lungs essentially clear to auscultation bilaterally. HEART: Irregular rate and rhythm. S1 and S2 heard. Systolic murmur noted. ABDOMEN: Soft. Nondistended. Nontender. EXTREMITIES: Normal range of motion. No clubbing or cyanosis. Peripheral pulses intact. No lower extremity edema NEUROLOGIC: Awake and alert. Oriented x 3. ASSESSMENT: Generalized weakness Elevated troponins, flat, possible non-STEMI ruled out Permanent atrial fibrillation with controlled ventricular rate Hypertension Hyperlipidemia Valvular heart disease with moderate MR and moderate TR PLAN: Patient is cleared for discharge from cardiology and to follow-up with Dr. Lim in 1 to 2 weeks. Continue cardiac medications: Losartan hydrochlorothiazide, atorvastatin, amlodipine, Eliquis Nurse practitioner note has been reviewed by physician. Signing provider agrees with the documented findings, assessment, and plan of care documented by SENIOR CENTER MANAGER as a scribe. Objective - Vital Signs Vital signs: Vital Signs Temp 98.2 F 03/26/24 03:40 Pulse 76 03/26/24 07:32 Resp 16 03/26/24 07:32 BP 138/81 03/26/24 07:32 Pulse Ox 99 03/26/24 07:32 FiO2 Intake & Output 03/25/24 03/26/24 03/26/24 18:59 06:59 18:59 Intake Total 740 500 Balance 740 500 Weight 67.5 kg Intake: IV 200 Oral 540 500 Other: Voiding Method Toilet Toilet # Voids 2 - Labs CBC & Chem 7: 03/26/24 03:13 03/26/24 03:13 Labs: Abnormal Lab Results - Last 24 Hours (Table) 03/25/24 03/25/24 03/26/24 Range/Units 02:27 12:59 03:13 RBC 4.07 L (4.30-5.90) m/uL Neutrophils # 8.1 H (1.3-7.7) k/uL Chloride 111 H (98-107) mmol/L BUN (9-20) mg/dL HDL Cholesterol 63.10 H (40.00-60.00) mg/dL 03/26/24 Range/Units 03:13 RBC (4.30-5.90) m/uL Neutrophils # (1.3-7.7) k/uL Chloride 110 H (98-107) mmol/L BUN 21 H (9-20) mg/dL HDL Cholesterol (40.00-60.00) mg/dL
--- NOTE | 2024-03-31 14:58 | P.DS ---
Providers Date of admission: 03/24/24 11:20 Expected date of discharge: 03/26/24 Attending physician: Gisel Gonzalez Consults: 03/24/24 11:19 Consult Physician Urgent Consulting Provider: [facility] Reason/Comments: Elevated troponin Do you want consulting provider notified?: Yes Primary care physician: Gisel Gonzalez [facility] Course: HISTORY OF PRESENT ILLNESS: This is an 88-year-old male with a previous medical history significant for hypertension and hypertensive cardiovascular disease, hyperlipidemia, paroxysmal atrial fibrillation, enlarged prostate, patient presented to the emergency department at [facility] because he was not feeling well, generalized weakness, nonspecific complaint, minimal abdominal pain nausea but no vomiting, patient has been following with cardiology Dr. Lim on a regular basis, and patient has been doing fine up till recently when he was started on Jardiance for atrial fibrillation to try to reduce the amount of LV pressure, and the patient became quite anorexic, was not able to eat much, he had lost a lot of weight, with some difficulty swallowing without evidence of any esophagitis or any other symptoms, he came to the office after a significant amount of weight loss, he was taken off his Jardiance and the patient started feeling better, and the patient called few days ago and stated that the patient is not feeling well, he generalized weakness with not able to get out of the bed, with minimal dyspnea on exertion, he was directed to go to the emergency department at [facility], his EKG did not show evidence of acute abnormalities, his cardiac exam was slightly elevated, because of that he was seen in consultation by cardiology, he underwent left heart catheterization that was done by Dr. 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 Patient also did have a CT scan of the abdomen and pelvis with contrast that showed evidence of colonic diverticulosis, enlarged prostate, bilateral inguinal hernia as well as enlarged prostate no other acute abnormality. 03/26: Patient did have an echocardiogram as stated earlier, he is feeling a lot better today, he is moving around well, he denies any chest pain or any shortness of breath, he was cleared by cardiology to go home I will send the patient home and follow-up with him as an outpatient in the next week or so. Discharge diagnoses: 1. Elevated troponin likely related to decreased clearance. No evidence of acute coronary syndrome, status post left heart catheterization that showed evidence of mild intimal disease of the mid RCA about 10%. 2. Concentric left ventricular hypertrophy with bilateral atrial enlargement and mild mitral regurgitation and tricuspid regurgitation. 3. Hypertension and hypertensive cardiovascular disease. 4. Mixed hyperlipidemia. 5. Paroxysmal atrial fibrillation. 6. Enlarged prostate. 7. Elevated PSA. 8. Dyspnea on exertion likely related to atrial fibrillation and hypertensive cardiovascular disease. 9. Possible depression. 10. Constipation 11. Colonic diverticulosis. Patient Condition at Discharge: Stable Plan - Discharge Summary Discharge Rx Participant: No New Discharge Prescriptions: Continue Losartan/Hydrochlorothiazide [Losartan-Hctz 100-12.5 mg Tab] 1 tab PO DAILY Multivitamins, Thera [Multivitamin (formulary)] 1 tab PO DAILY Atorvastatin [Lipitor] 40 mg PO HS amLODIPine [Norvasc] 5 mg PO DAILY Cholecalciferol (Vitamin D3) [Vitamin D3 (3000 Iu)] 75 mcg PO DAILY Apixaban [Eliquis] 5 mg PO BID Finasteride [Proscar] 5 mg PO DAILY Discharge Medication List Losartan/Hydrochlorothiazide [Losartan-Hctz 100-12.5 mg Tab] 1 tab PO DAILY 11/24/17 [History] Atorvastatin [Lipitor] 40 mg PO HS 01/25/23 [History] Finasteride [Proscar] 5 mg PO DAILY 01/25/23 [History] Multivitamins, Thera [Multivitamin (formulary)] 1 tab PO DAILY 01/25/23 [History] amLODIPine [Norvasc] 5 mg PO DAILY 01/25/23 [History] Apixaban [Eliquis] 5 mg PO BID 02/14/24 [History] Cholecalciferol (Vitamin D3) [Vitamin D3 (3000 Iu)] 75 mcg PO DAILY 02/14/24 [History] Follow up Appointment(s)/Referral(s): Lo Lim MD [STAFF PHYSICIAN] - 04/11/24 4:15 pm (Tuesday) Gisel Gonzalez MD [Primary Care Provider] - 1 Week (Office is currently not answering phones. PLease call to schedule appointment) Patient Instructions/Handouts: *[facility] - After Heart Catheterization - Director Of Digital Marketing Instructions Discharge Disposition: HOME SELF-CARE
== END 2024-03-26 14:09 | disposition home or self-care (01) ==
LOC: EC 08:54 → 3SCARD 11:20
PROVIDERS: ADMIT Internal Medicine; ATTEND Internal Medicine
DX: R79.89 Other specified abnormal findings of blood chemistry (principal); I11.9 Hypertensive heart disease without heart failure; I08.1 Rheumatic disorders of both mitral and tricuspid valves; R53.1 Weakness; E78.2 Mixed hyperlipidemia; I48.0 Paroxysmal atrial fibrillation; N40.0 Benign prostatic hyperplasia without lower urinary tract symptoms; K59.00 Constipation, unspecified; K57.30 Diverticulosis of large intestine without perforation or abscess without bleeding; K40.20 Bilateral inguinal hernia, without obstruction or gangrene, not specified as recurrent; R63.4 Abnormal weight loss; Z68.22 Body mass index [BMI] 22.0-22.9, adult; Z79.84 Long term (current) use of oral hypoglycemic drugs; Z79.899 Other long term (current) drug therapy; Z79.01 Long term (current) use of anticoagulants; Z91.040 Latex allergy status; Z86.16 Personal history of COVID-19; Z85.51 Personal history of malignant neoplasm of bladder
CPT/HCPCS: 96361; 96374; 99285; 36415; 93005; 93306; 97161; 97165; 93454; 80061; 80053 ×2; 80048 ×2; 84443; 83605; 83735; 84484; 85025 ×3; 85610 ×2; 85730 ×3; 81003; 71046; 74176; G0378 ×3; C1769 ×4; C1894; S0138 ×2; J2250; J1644 ×5; J2003; J3010; Q9967